=== PATIENT | male | born 1990 | race Caucasian/White ===

== ENCOUNTER 2020-04-28 15:12 | Emergency (ER) | payer MEDICAID, SELFPAY ==
[2020-04-28 15:18] VITALS: BP 134/75; PULSE 70; RESP 18; TEMP 37; O2SAT 99; BMI 28.2
--- NOTE | 2020-04-28 15:33 | CT_ITS ---
PROCEDURE: CT ABDOMEN PELVIS WO CON CLINICAL INDICATION: L flank pain Left flank pain COMPARISON: No exams were available for comparison TECHNIQUE: Axial images obtained with sagittal and coronal reformats. All CT scans at the facility use one or more dose reduction, viz: automated exposure control, ma/kV adjustment per patient size (including targeted exams where dose is matched to indication, i.e. head), or iterative reconstruction technique. FINDINGS: LOWER THORAX: No acute finding ABDOMEN & PELVIS: There is diffuse fatty liver infiltration. The spleen, adrenal glands, and pancreas have an unremarkable appearance. There is a 2 mm stone in the mid polar region of the left kidney. Minimal prominence of the left ureter secondary to a 4 mm stone at the left ureterovesical junction. There is minimal thickening of the urinary bladder. Unremarkable appendix. No intestinal obstruction or free air. There is a small sclerotic focus of the left femoral neck consistent with a bone island IMPRESSION: 4 mm left ureterovesical junction stone with mild obstructive uropathy. Left nephrolithiasis. Mild thickening of the urinary bladder nonspecific and may be due to nondistention. This could be seen with cystitis as well Dictated Andrew De La Cruz MD 04/28/2020 16:19 Andrew Rodriguez MD in [place] 04/28/2020 16:19
--- NOTE | 2020-04-28 15:43 | PC.NURSE ---
rad notified of Ct order, spoke with merry
[2020-04-28 15:45] LABS: Microscopic, Urine URINE MICROSCOPIC (MICROSCOPIC)
[2020-04-28 15:49] LABS: Appearance,Urine CLOUDY (Clear); Bilirubin,Urine Negative (Negative); Blood, Urine 3+ (Negative); Color,Urine AMBER (Yellow); Glucose,Urine (UA) Negative (Negative); Ketones,Urine TRACE (Negative); Leukocyte Esterase,Urine TRACE (Negative); Nitrate,Urine Negative (Negative); Protein,Urine 2+ (Negative)
[2020-04-28 15:52] LABS: Basophils % 0.6 % (0.1-2.0); Eosinophils # 0.1 K/mm3 (0.0-0.4); Eosinophils % 2.5 % (0.1-12.0); Hematocrit 36.6 % (42.0-52.0); Hemoglobin 13.3 g/dL (14.1-18.0); Mean Corpuscular HGB Conc 36.3 g/dL (31.8-35.4); Mean Corpuscular Hemoglobin 29.9 pg (27.0-31.2); Mean Corpuscular Volume 82.3 fl (80-94); Mean Platelet Volume 7.2 fl (7.4-10.4); Monocytes # 0.3 K/mm3 (0.1-1.0); Monocytes % 6.7 % (1.7-9.3); Neutrophils # 2.8 K/mm3 (1.8-7.8); Neutrophils % 66.3 % (37.0-80.0); Platelet Count 239 K/mm3 (142-424); Red Blood Count 4.44 M/mm3 (4.60-6.20); Red Cell Distribution Width 13.7 % (11.5-17.5); White Blood Count 4.2 K/mm3 (4.8-10.8)
[2020-04-28 15:56] LABS: Chloride 103 mmol/L (98-107); Potassium 3.8 mmoL/L (3.5-5.1); Sodium 138 mmol/L (136-145)
[2020-04-28 15:59] LABS: Alanine Aminotransferase 65 U/L (12-78); Albumin Level 4.3 g/dl (3.5-5.0); Albumin/Globulin Ratio 1.4 (1.1-1.8); Alkaline Phosphatase 63 U/L (38-126); Anion Gap 11.8 mEq/L (5-15); Aspartate Amino Transferase 60 U/L (17-59); Blood Urea Nitrogen 14 mg/dl (9-20); Calcium 10.2 mg/dl (8.4-10.2); Carbon Dioxide 27 mmol/L (22.0-30.0); Creatinine Clearance Estimated 163 mL/min (50-200); Estimated Glomerular Filt Rate 100 ml/min (>60); GFR (African American) 122 ML/MIN (>60); Globulin 3.1 g/dL (1.3-3.2); Glucose 122 mg/dl (74-100); Total Protein,Serum 7.4 g/dl (6.3-8.2)
[2020-04-28 16:16] LABS: Bacteria,Urine Trace /lpf; RBC,Urine 20-50 #/hpf (0-3); Squamous Epithelial Cell,Urine Occasional #/hpf (0-5); WBC,Urine Occasional #/hpf (0-3)
--- NOTE | 2020-04-28 16:16 | PC.NURSE ---
Pt returned from rad.
--- NOTE | 2020-04-28 17:05 | HMH.EDGENADL ---
ED Disposition Clinical Impression: Kidney stones, calcium oxalate, Flank pain Disposition: Home, Self-Care Condition on Discharge: Good Instructions: DI for Acute Pain -- Adult Additional Instructions: Follow-up with Dr. Silva Referrals: PCP,Lani [Primary Care Provider] - Gabriele Silva MD [Staff Physician] - - Critical Care Critical Care Time: No Attestation: On 04/28/20, the high probability of a clinically significant, sudden or life threatening deterioration of the following system(s) required my full and direct attention, intervention and personal management. The time I documented below is in addition to time spent performing reported procedures but includes the following listed in this critical care notation. Medical Decision Making - Medical Records Medical records reviewed: Yes: I reviewed the patient's medical records. - Tae Inquiry Pt receiving controlled substance: No Vital Signs: 04/28/20 15:18 Temperature 98.6 F Temperature Source Oral Pulse Rate [Right Radial] 70 Respiratory Rate 18 Blood Pressure [Right Arm] 134/75 Blood Pressure Mean [Right Arm] 94 Blood Pressure Source [Right Arm] Automatic Cuff Blood Pressure Position [Right Arm] Sitting 02 Sat by Pulse Oximetry 99 Oxygen Delivery Method Room Air - Lab Data Lab results reviewed: Yes: I reviewed the patient's lab results. Lab Results 04/28/20 15:20: Urine Color Elvi, Urine Appearance Cloudy, Urine pH 7.0, Ur Specific [place] 1.020, Urine Protein 2+, Urine Glucose (UA) Negative, Urine Ketones Trace, Urine Blood 3+, Urine Nitrate Negative, Urine Bilirubin Negative, Urine Urobilinogen 1.0, Ur Leukocyte Esterase Trace, Urine RBC 20-50, Urine WBC Occasional, Ur Squamous Epith Cells Occasional, Urine Bacteria Trace 04/28/20 15:40: WBC 4.2 L, RBC 4.44 L, Hgb 13.3 L, Hct 36.6 L, MCV 82.3, MCH 29.9, MCHC 36.3 H, RDW 13.7, Plt Count 239, MPV 7.2 L, Neut % (Auto) 66.3, Lymph % (Auto) 24.0, Cass % (Auto) 6.7, Eos % (Auto) 2.5, Baso % (Auto) 0.6, Neut # (Auto) 2.8, Lymph # (Auto) 1.0, Cass # (Auto) 0.3, Eos # (Auto) 0.1, Baso # (Auto) 0.0 04/28/20 15:40: Sodium 138, Potassium 3.8, Chloride 103, Carbon Dioxide 27, Anion Gap 11.8, BUN 14, Creatinine 0.90, Estimated Creat Clear 163, Estimated GFR 100, Est GFR ( Amer) 122, Glucose 122 H, Calcium 10.2, Total Bilirubin 1.0, AST 60 H, ALT 65, Alkaline Phosphatase 63, Total Protein 7.4, Albumin 4.3, Globulin 3.1, Albumin/Globulin Ratio 1.4 Result diagrams: 04/28/20 15:40 04/28/20 15:40 Orders (Tests/Meds): ED MEDICATIONS Discontinued Medications Generic Name Dose Route Start Last Admin Trade Name Tone PRN Reason Stop Dose Admin Sodium Chloride 1,000 mls @ 999 mls/hr 04/28/20 15:45 04/28/20 15:46 Sod Chlor 0.9% 1000ml Bag IV 04/28/20 16:45 999 mls/hr .Q1H1M THIEN Administration Ketorolac Tromethamine 30 mg 04/28/20 15:45 04/28/20 15:46 Toradol 30mg/Ml Vial IV 04/28/20 15:46 30 mg ONCE ONE Administration Ondansetron HCl 4 mg 04/28/20 15:45 04/28/20 15:46 Zofran 4mg/2ml Vial IV 04/28/20 15:46 4 mg ONCE ONE Administration - CT Data CT Scan: Abdomen, Pelvis Time Received: 16:10 Preliminary Findings: Abnormal (Throw male millimeters stone in the JVD.) Medical Decision Narrative: Patient's pain is well controlled. I will have him follow-up with Dr. Silva. General Adult HPI - General Chief complaint: PAIN Stated complaint: Vomiting,,problems in kidney,l side pain Time Seen by Provider: 04/28/20 16:46 Mode of Arrival: Ambulatory Source of Information: Patient Limitations: No Limitations Description of Symptoms (Recalled from ER Triage Doc. by RN): PT C/O L FLANK PAIN AND DIFFICULTY URINATING. PT REPORTS BLOOD NOTED IN URINE. PT REPORTS SYMPTOMS BEGAN THIS AM. - History of Present Illness HPI narrative: A 30-year-old gentleman presents the emergency department complain about left flank pain. He states the pain started this morning
[2020-04-28 17:23] VITALS: BP 133/90; PULSE 87; RESP 17; TEMP 36.7; O2SAT 100
== END 2020-04-28 17:41 | disposition home or self-care (01) ==
PROVIDERS: Emergency Provider Family Medicine
DX: N20.0 Calculus of kidney (principal)
CPT/HCPCS: 74176; 80053; 81001; 85025; 96365; 96375; 99283; J2405

== ENCOUNTER 2020-12-12 19:22 | Emergency (ER) | payer MEDICAID, SELFPAY ==
[2020-12-12 19:30] VITALS: BP 117/76; PULSE 84; RESP 17; TEMP 36.6; O2SAT 99; BMI 37.6
--- NOTE | 2020-12-12 20:04 | HMH.EDEYEP ---
ED Disposition Clinical Impression: Foreign body, eye Qualifiers: Encounter type: initial encounter Laterality: left Qualified Code(s): T15.92XA - Foreign body on external eye, part unspecified, left eye, initial encounter Disposition: Home, Self-Care Condition on Discharge: Good Instructions: How to Get a Foreign Body Out of Your Eye Additional Instructions: use meds as directed and see dr mclaughlin in am if any issues Referrals: PCP,No [Primary Care Provider] - - Critical Care Critical Care Time: No Attestation: On 12/12/20, the high probability of a clinically significant, sudden or life threatening deterioration of the following system(s) required my full and direct attention, intervention and personal management. The time I documented below is in addition to time spent performing reported procedures but includes the following listed in this critical care notation. Medical Decision Making - Medical Records Medical records reviewed: Yes: I reviewed the patient's medical records. - Tae Inquiry Pt receiving controlled substance: No Vital Signs: 12/12/20 19:30 Temperature 97.8 F Temperature Source Oral Pulse Rate [Right Brachial] 84 Respiratory Rate 17 Blood Pressure [Right Arm] 117/76 Blood Pressure Mean [Right Arm] 89 Blood Pressure Source [Right Arm] Automatic Cuff Blood Pressure Position [Right Arm] Sitting 02 Sat by Pulse Oximetry 99 Oxygen Delivery Method Room Air Orders (Tests/Meds): ED MEDICATIONS Discontinued Medications Generic Name Dose Route Start Last Admin Trade Name Freq PRN Reason Stop Dose Admin Gentamicin Sulfate 1 ml 12/12/20 20:01 12/12/20 20:02 Gentamicin 0.3% Opth Irene 5ml OP 12/12/20 20:02 1 ml ONCE ONE Administration Eye Problem HPI - General Chief complaint: Eye Problems Stated complaint: AO 0326 FB in L eye Time Seen by Provider: 12/12/20 20:00 Mode of Arrival: Family Vehicle Source of Information: Patient, Medical Record Limitations: No Limitations Description of Symptoms (Recalled from ER Triage Doc. 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 Onset (ago): hour(s) Onset description: sudden Location: left eye Eye Symptoms: foreign body sensation Place: home Mechanism: other (as in nursing note ) Severity: moderate Treatments Prior to Arrival: none - Related Data Home Medications Medication Instructions Recorded Confirmed docusate sodium 100 mg capsule PO 30 Days #30 11/18/17 trazodone 100 mg tablet PO 30 Days #30 11/18/17 Previous Rx's Medication Instructions Recorded rdfcfucwoixiiau-mimegiofcugfimf-MM 10 ml PO Q4-6H PRN #240 ml 11/18/17 2 mg-30 mg-10 mg/5 mL oral syrup Amoxicillin/Potassium Clav 1 tab PO Q12H 10 Days #20 tab 06/26/19 [Augmentin 875-125 Tablet] Neomycin/Polymyxin B Sulf/Hc 3 drops EAR-LEFT TID 7 Days #1 06/26/19 [Ieoveoyd-Tsopryufs-KK Otic Susp bottle 10mL] Allergies Allergy/AdvReac Type Severity Reaction Status Date / Time No Known Allergies Allergy Unverified 11/18/17 13:37 [facility] History - Hepatitis A Screen Drug use history?: No High risk sexual behaviors?: No History of sexually transmitted infection?: No Currently employed?: No Childcare worker?: No Do you have indoor plumbing?: Yes Do you have electricity?: Yes Attestation statement:: This patient has been screened for Hepatitis A risk factors. I have reviewed the patient's past medical history: Yes Medical History: Denies:: Diabetes Mellitus Type 1, Diabetes Mellitus Type 2 Other Surgeries: Yes: No Previous Surgery - Social History Smoking Status: Never smoker Alcohol Intake: never Occupational Status: other Family Hx:: Cancer ROS Obtained: Yes All systems reviewed & no additional complaints
[2020-12-12 20:09] VITALS: BP 120/74; PULSE 84; RESP 16; TEMP 36.7; O2SAT 98
== END 2020-12-12 20:15 | disposition home or self-care (01) ==
PROVIDERS: Emergency Provider Emergency Medicine
DX: T15.92XA Foreign body on external eye, part unspecified, left eye, initial encounter (principal); W45.8XXA Other foreign body or object entering through skin, initial encounter; Y92.89 Other specified places as the place of occurrence of the external cause
CPT/HCPCS: 65205; 99282

== ENCOUNTER → 2021-06-16 09:54 | Outpatient (CLI) | payer MEDICAID, SELFPAY | PROVIDERS: PCP Emergency Medicine; Visit Provider Nurse Practitioner | DX: Z20.822 Contact with and (suspected) exposure to COVID-19 (principal) | CPT/HCPCS: C9803; U0003; U0005 ==

== ENCOUNTER 2021-06-26 16:55 | Emergency (ER) | payer MEDICAID, SELFPAY ==
[2021-06-26 17:10] VITALS: BP 119/79; PULSE 93; RESP 20; TEMP 37.2; O2SAT 96; BMI 31.7
[2021-06-26 17:20] LABS: Adenovirus,PCR Not Detected (NotDetected); Coronavirus 229E Not Detected (NotDetected); Coronavirus NL63 Not Detected (NotDetected); Coronavirus OC43 Not Detected (NotDetected); Coronovirus HKU1,PCR Not Detected (NotDetected)
[2021-06-26 17:21] LABS: Bordetella Pertussis Not Detected (NotDetected); Chlamydophila Pneumoniae, PCR Not Detected (NotDetected); Human Metapneumovirus Not Detected (NotDetected); Influenza A, PCR Not Detected (NotDetected); Influenza AH1, 2009 Not Detected (NotDetected); Influenza AH1, PCR Not Detected (NotDetected); Influenza AH3,PCR Not Detected (NotDetected); Influenza B, PCR Not Detected (NotDetected); Mycoplasma Pneumoniae, PCR Not Detected (NotDetected); Parainfluenza 1, PCR Not Detected (NotDetected); Parainfluenza 2, PCR Not Detected (NotDetected); Parainfluenza 3, PCR Not Detected (NotDetected); Parainfluenza 4, PCR Not Detected (NotDetected); Respiratory Syncytial Virus Not Detected (NotDetected); Rhinovirus/Enterovirus Not Detected (NotDetected)
--- NOTE | 2021-06-26 17:56 | HMH.EDUTC ---
[facility] [place] Disposition Clinical Impression: Viral syndrome Acute bronchitis Qualifiers: Bronchitis organism: unspecified organism Qualified Code(s): J20.9 - Acute bronchitis, unspecified Disposition: Home, Self-Care Condition on Discharge: Good Instructions: Acute Bronchitis, DI for Acute Bronchitis, DI for Viral Syndrome, DI for COVID-19 (Suspected or Confirmed ), Preventing the Spread of Coronavirus Discharge Instructions Additional Instructions: Drink plenty of fluids. Take tylenol or ibuprofen for pain or fever. Take the medications as directed. Follow up with your regular doctor. GO TO THE ER FOR ANY WORSENING SYMPTOMS Quarantine until you know the results of your covid-19 test. If it is positive, the health department should call you and give you further instructions about your length of Quarantine and other things. Notify your school or workplace of your results and follow their instructions regarding return to work/school. Prescriptions: Brompheniramine/Pseudoephed/Dm [Bromfed Dm Cough Syrup] 5 ml PO Q6HP PRN #240 ml PRN Reason: Cough Transmission Status: Received by [facility] predniSONE [Prednisone 20mg Tab] 20 mg PO BID 4 Days #8 tab Transmission Status: Received by [facility] Azithromycin [Z-Michael 250mg Tab*] 250 mg PO UD DOSE PK #6 tab Transmission Status: Received by [facility] Ondansetron [Zofran 4mg ODT] 4 mg PO DAILYP PRN #12 tab PRN Reason: Nausea Transmission Status: Received by [facility] Referrals: Phill Lemon MD [Primary Care Provider] - Time of Disposition: 18:16 Medical Decision Making - Medical Records Medical records reviewed: No: I reviewed the patient's medical records. - Tae Inquiry Pt receiving controlled substance: No Vital Signs: 06/26/21 17:10 06/26/21 18:09 Temperature 98.9 F 98.9 F Temperature Source Oral Pulse Rate 93 H Pulse Rate [Right Brachial] 93 H Respiratory Rate 20 20 Blood Pressure 119/79 Blood Pressure [Right Arm] 119/79 Blood Pressure Mean [Right Arm] 92 Blood Pressure Source [Right Arm] Automatic Cuff Blood Pressure Position [Right Arm] Sitting 02 Sat by Pulse Oximetry 96 Oxygen Delivery Method Room Air - Lab Data Lab results reviewed: Yes: I reviewed the patient's lab results. Lab Results 06/26/21 17:12: Chlamy pneumoniae PCR Not detected, Adenovirus (PCR) Not detected, B. pertussis DNA (PCR) Not detected, Coronavirus OC43 (PCR) Not detected, Coronavirus HKU1 (PCR) Not detected, Coronavirus 229E (PCR) Not detected, SARS-CoV-2 (PCR) Detected A, Coronavirus NL63 (PCR) Not detected, Human Metapneumovir PCR Not detected, Influenza A (H1) PCR Not detected, Influ A (H1N1/09) PCR Not detected, Influenza A (H3) PCR Not detected, Influenza Type A (PCR) Not detected, Influenza Type B (PCR) Not detected, M. pneumoniae (PCR) Not detected, Parainfluenza 1 (PCR) Not detected, Parainfluenza 2 (PCR) Not detected, Parainfluenza 3 (PCR) Not detected, Parainfluenza 4 (PCR) Not detected, RSV (PCR) Not detected, Entero/Rhino (PCR) Not detected 06/26/21 17:59: Strep Scn Rapid Clinic Negative Orders (Tests/Meds): ORDERS Category Date Time Status Strep Screen Confirmation Stat Micro 06/26/21 17:59 Received [facility] [place] HPI - General Stated complaint: Sore throat,Cough,SOB,LEDBETTER Time Seen by Provider: 06/26/21 17:56 Mode of Arrival: Ambulatory Source of Information: Patient Limitations: No Limitations Description of Symptoms (Recalled from Triage Doc. by RN): PATIENT C/O BODY ACHES, BACK PAIN, SOA, VOMITING, AND COUGH. RECENTLY TESTED NEGATIVE FOR COVID HEENT Symptoms (Recalled from RN notes): No Resp Symptoms (Recalled from RN notes): Yes Skin Symptoms (Recalled from RN notes): No MS Symptoms (Recalled from RN notes): Yes Functional Status (Recalled from RN notes): WNL - History of Present Illness Provider Complaint: He states that for the past 5 days or so, he has felt bad, had a cough, c
[2021-06-26 18:08] LABS: UTC Strep Screen (Rapid) Negative (Negative)
[2021-06-26 18:09] VITALS: BP 119/79; PULSE 93; RESP 20; TEMP 37.2; O2SAT 96
[2021-06-26 19:17] LABS: Coronavirus 19, PCR Detected (NotDetected)
== END 2021-06-26 18:24 | disposition home or self-care (01) ==
PROVIDERS: Emergency Provider Nurse Practitioner Family; PCP Emergency Medicine
DX: J20.9 Acute bronchitis, unspecified (principal); B34.9 Viral infection, unspecified
CPT/HCPCS: 87581; 87632; 87798; 87880; 99203; C9803; G0463; U0003; U0005

== ENCOUNTER 2021-11-24 15:59 | Emergency (ER) | payer MEDICAID, SELFPAY ==
[2021-11-24 15:59] VITALS: BP 135/60; PULSE 70; RESP 16; TEMP 37.2; O2SAT 98; BMI 23.6
--- NOTE | 2021-11-24 17:55 | HMH.EDUTC ---
[facility] – [place] Disposition Clinical Impression: Pharyngitis Qualifiers: Pharyngitis/tonsillitis etiology: unspecified etiology Qualified Code(s): J02.9 - Acute pharyngitis, unspecified Disposition: Home, Self-Care Condition on Discharge: Good Instructions: Strep Throat, DI for Strep Throat Additional Instructions: Drink plenty of fluids. Take tylenol or ibuprofen for pain or fever. Take the medications as directed. Follow up with your regular doctor. GO TO THE ER FOR ANY WORSENING SYMPTOMS Prescriptions: Brompheniramine/Pseudoephed/Dm [Bromfed Dm Cough Syrup] 5 ml PO Q6HP PRN #240 ml PRN Reason: Cough Transmission Status: Received by [facility] Azithromycin [Z-Michael 250mg Tab*] 250 mg PO UD DOSE PK #6 tab Transmission Status: Received by [facility] Referrals: Phill Lemon MD [Primary Care Provider] - Time of Disposition: 18:05 Medical Decision Making - Medical Records Medical records reviewed: No: I reviewed the patient's medical records. - Tae Inquiry Pt receiving controlled substance: No Vital Signs: 11/24/21 15:59 11/24/21 18:12 Temperature 98.9 F 98 F Temperature Source Oral Oral Pulse Rate 71 Pulse Rate [Right] 70 Respiratory Rate 16 16 Blood Pressure 135/60 Blood Pressure [Right Arm] 135/60 Blood Pressure Mean [Right Arm] 85 Blood Pressure Source Automatic Cuff Blood Pressure Source [Right Arm] Automatic Cuff Blood Pressure Position Sitting Blood Pressure Position [Right Arm] Sitting 02 Sat by Pulse Oximetry 98 Oxygen Delivery Method Room Air Room Air - Lab Data Lab results reviewed: Yes: I reviewed the patient's lab results. Lab Results 11/24/21 17:47: Strep Scn Rapid Clinic Negative Orders (Tests/Meds): ORDERS Category Date Time Status Strep Screen Confirmation Stat Micro 11/24/21 17:47 Received [facility] [place] HPI - General Stated complaint: vomiting Time Seen by Provider: 11/24/21 17:55 Mode of Arrival: Ambulatory Source of Information: Patient Limitations: No Limitations Description of Symptoms (Recalled from Triage Doc. by RN): pt advises he has not been feeling good for the past couple of days. Says I just don't feel good HEENT Symptoms (Recalled from RN notes): No Resp Symptoms (Recalled from RN notes): No Skin Symptoms (Recalled from RN notes): No MS Symptoms (Recalled from RN notes): No Functional Status (Recalled from RN notes): na - History of Present Illness Provider Complaint: He states that he has had body ache, sinus congestion, sore throat and he has felt bad for the past 2 days. - Related Data Home Medications Medication Instructions Recorded Confirmed docusate sodium 100 mg capsule PO 30 Days #30 11/18/17 trazodone 100 mg tablet PO 30 Days #30 11/18/17 Previous Rx's Medication Instructions Recorded hvbjvrdyyxftasg-pwmqxsvbcuwkctp-QJ 10 ml PO Q4-6H PRN #240 ml 11/18/17 2 mg-30 mg-10 mg/5 mL oral syrup Amoxicillin/Potassium Clav 1 tab PO Q12H 10 Days #20 tab 06/26/19 [Augmentin 875-125 Tablet] Neomycin/Polymyxin B Sulf/Hc 3 drops EAR-LEFT TID 7 Days #1 06/26/19 [Texjmzzs-Uujdiowsf-BW Otic Susp bottle 10mL] Azithromycin [Z-Michael 250mg Tab*] 250 mg PO UD DOSE PK #6 tab 06/26/21 Brompheniramine/Pseudoephed/Dm 5 ml PO Q6HP PRN #240 ml 06/26/21 [Bromfed Dm Cough Syrup] Ondansetron [Zofran 4mg ODT] 4 mg PO DAILYP PRN #12 tab 06/26/21 predniSONE [Prednisone 20mg 20 mg PO BID 4 Days #8 tab 06/26/21 Tab] Azithromycin [Z-Michael 250mg Tab*] 250 mg PO UD DOSE PK #6 tab 11/24/21 Brompheniramine/Pseudoephed/Dm 5 ml PO Q6HP PRN #240 ml 11/24/21 [Bromfed Dm Cough Syrup] Allergies Allergy/AdvReac Type Severity Reaction Status Date / Time No Known Allergies Allergy Verified 06/26/21 17:29 - Worker's Comp Is this a Worker's Comp case?: No [facility] History - Hepatitis A Screen Drug use history?: No High risk sexual behaviors?: No History of sexually transmitted infection?: No Currentl
[2021-11-24 17:58] LABS: UTC Strep Screen (Rapid) Negative (Negative)
[2021-11-24 18:12] VITALS: BP 135/60; PULSE 71; RESP 16; TEMP 36.6; O2SAT 98
== END 2021-11-24 18:14 | disposition home or self-care (01) ==
PROVIDERS: Emergency Provider Nurse Practitioner Family; PCP Emergency Medicine
DX: J02.9 Acute pharyngitis, unspecified (principal)
CPT/HCPCS: 87880; 99212; G0463

== ENCOUNTER 2022-05-05 08:13 | Emergency (ER) | payer MEDICAID, SELFPAY ==
[2022-05-05 08:32] VITALS: BP 112/68; PULSE 64; RESP 16; TEMP 36.9; O2SAT 99; BMI 31.0
--- NOTE | 2022-05-05 08:40 | HMH.EDUTC ---
[facility] [place] Clinical Impression: Folliculitis Disposition: Home, Self-Care Condition on Discharge: Good Instructions: Folliculitis, DI for Folliculitis Additional Instructions: Keep the affected area clean and dry. Follow up with your regular doctor. Take the antibiotics as directed and apply the topical antibiotics as directed. Apply warm wet compresses to the affected area three or four times per day. GO TO THE ER FOR ANY WORSENING SYMPTOMS Prescriptions: Mupirocin [Bactroban 2% Ointment 22gm tube] 1 applicatio TP TID 7 Days #1 gm Transmission Status: Received by [facility] cephALEXin [cephALEXin 500mg capsule] 500 mg PO Q6H 10 Days #40 cap Transmission Status: Received by [facility] Referrals: Phill Lemon MD [Primary Care Provider] - Time of Disposition: 08:59 Medical Decision Making - Medical Records Medical records reviewed: No: I reviewed the patient's medical records. - Tae Inquiry Pt receiving controlled substance: No Vital Signs: 05/05/22 08:32 05/05/22 08:49 05/05/22 09:03 Temperature 98.5 F 98.5 F 98.5 F Temperature Source Oral Oral Pulse Rate 64 Pulse Rate [Right Radial] 64 64 Respiratory Rate 16 16 16 Blood Pressure 112/68 Blood Pressure [Right Arm] 112/68 112/68 Blood Pressure Mean [Right Arm] 82 82 Blood Pressure Source [Right Arm] Automatic Cuff Blood Pressure Position [Right Arm] Sitting 02 Sat by Pulse Oximetry 99 99 Oxygen Delivery Method Room Air [facility] [place]PI - General Stated complaint: sore near groin Time Seen by Provider: 05/05/22 08:40 Mode of Arrival: Ambulatory Source of Information: Patient Limitations: No Limitations Description of Symptoms (Recalled from Triage Doc. by RN): Pt reports red, sore area in L groin area. Pt reports noticed area yesterday. Pt states no drainage from area, denies fevers. - History of Present Illness Provider Complaint: He states that for the past 2 days he has had a red tender area at the top of his left leg near his groin. He denies any injury. He denies any open wound or drainage. - Related Data Home Medications Medication Instructions Recorded Confirmed docusate sodium 100 mg capsule PO 30 Days #30 11/18/17 trazodone 100 mg tablet PO 30 Days #30 11/18/17 Previous Rx's Medication Instructions Recorded osemstmooznybvo-qmqavsabtnxmmkm-OS 10 ml PO Q4-6H PRN #240 ml 11/18/17 2 mg-30 mg-10 mg/5 mL oral syrup Amoxicillin/Potassium Clav 1 tab PO Q12H 10 Days #20 tab 06/26/19 [Augmentin 875-125 Tablet] Neomycin/Polymyxin B Sulf/Hc 3 drops EAR-LEFT TID 7 Days #1 06/26/19 [Cjxvpmbh-Szpznkqbd-DA Otic Susp bottle 10mL] Azithromycin [Z-Michael 250mg Tab*] 250 mg PO UD DOSE PK #6 tab 06/26/21 Brompheniramine/Pseudoephed/Dm 5 ml PO Q6HP PRN #240 ml 06/26/21 [Bromfed Dm Cough Syrup] Ondansetron [Zofran 4mg ODT] 4 mg PO DAILYP PRN #12 tab 06/26/21 predniSONE [Prednisone 20mg 20 mg PO BID 4 Days #8 tab 06/26/21 Tab] Azithromycin [Z-Michael 250mg Tab*] 250 mg PO UD DOSE PK #6 tab 11/24/21 Brompheniramine/Pseudoephed/Dm 5 ml PO Q6HP PRN #240 ml 11/24/21 [Bromfed Dm Cough Syrup] Mupirocin [Bactroban 2% Ointment 1 applicatio TP TID 7 Days #1 gm 05/05/22 22gm tube] cephALEXin [cephALEXin 500mg 500 mg PO Q6H 10 Days #40 cap 05/05/22 capsule] Allergies Allergy/AdvReac Type Severity Reaction Status Date / Time No Known Allergies Allergy Verified 05/05/22 08:52 [facility] History - Hepatitis A Screen Attestation statement:: This patient has been screened for Hepatitis A risk factors. I have reviewed the patient's past medical history: Yes Medical History: Denies:: Diabetes Mellitus Type 1, Diabetes Mellitus Type 2 Other Surgeries: Yes: No Previous Surgery - Social History Smoking Status: Never smoker Alcohol Intake: never Occupational Status: other Family Hx:: Cancer ROS Obtained: Yes All systems reviewed & no additional complaints -
[2022-05-05 08:49] VITALS: BP 112/68; PULSE 64; RESP 16; TEMP 36.9; O2SAT 99; BMI 31.1
[2022-05-05 09:03] VITALS: BP 112/68; PULSE 64; RESP 16; TEMP 36.9
== END 2022-05-05 09:05 | disposition home or self-care (01) ==
LOC: ER 08:31 → UTC 08:32
PROVIDERS: Emergency Provider Nurse Practitioner Family; PCP Emergency Medicine
DX: L73.9 Follicular disorder, unspecified
CPT/HCPCS: 99212; G0463

== ENCOUNTER 2022-07-05 12:54 | Emergency (ER) | payer MEDICAID, SELFPAY ==
[2022-07-05 12:59] VITALS: BP 126/86; PULSE 89; RESP 17; O2SAT 98; BMI 31.0
--- NOTE | 2022-07-05 14:07 | EXP.UTC ---
Discharge Plan Disposition Patient Disposition: Home, Self-Care Condition: Good Prescriptions Prescriptions: New sulfamethoxazole-trimethoprim [Bactrim DS] 800-160 mg Tablet 1 tab PO BID Qty: 20 0RF cephalexin 500 mg capsule 500 mg PO QID Qty: 40 0RF mupirocin 2 % ointment 1 applic topical TID 7 Days Qty: 15 0RF No Action trazodone 100 mg tablet PO 30 Days Qty: 30 Label Comments: docusate sodium 100 mg capsule PO 30 Days Qty: 30 Label Comments: vdsxzthtfhhzwoe-lbnomvmbp-ZT [Bromfed DM] 2-30-10 mg/5 mL syrup 10 ml PO Q4-6H PRN (Reason: sinus symptoms) Qty: 240 0RF xqdyhvly-fdfztgxaq-CD 10 ML bottle 3 drops EAR-LEFT TID 7 Days Qty: 1 0RF amoxicillin-pot clavulanate 1 EACH tablet 1 tab PO Q12H 10 Days Qty: 20 0RF azithromycin 250 MG tablet 250 mg PO UD DOSE PK Qty: 6 0RF Rx Instructions: Take two (2) tablets today, then one (1) tablet days #2 thru #5 micufxwbpyqmzyi-aaffflfah-UM 118 ML syrup 5 ml PO Q6HP PRN (Reason: Cough) Qty: 240 0RF ondansetron 4 MG tablet,disintegrating 4 mg PO DAILYP PRN (Reason: Nausea) Qty: 12 0RF prednisone 20 MG tablet 20 mg PO BID 4 Days Qty: 8 0RF cephalexin 500 MG capsule 500 mg PO Q6H 10 Days Qty: 40 0RF mupirocin 22 GM ointment 1 applicatio TP TID 7 Days Qty: 1 0RF azithromycin 250 MG tablet 250 mg PO UD DOSE PK Qty: 6 0RF Rx Instructions: Take two (2) tablets today, then one (1) tablet days #2 thru #5 onsssnfvksjrbgq-qlipizfbt-LB 118 ML syrup 5 ml PO Q6HP PRN (Reason: Cough) Qty: 240 0RF Referrals Follow up/Referrals: Phill Lemon MD [Primary Care Provider] - See instructions Activity Restrictions/Add. Instructions Additional Instructions/Restrictions: Drink plenty of fluids. Apply warm wet compresses to the affected sites three or four times per day for 15 minutes as tolerated. Take tylenol or ibuprofen for pain or fever. Take the medications as directed. Follow up with your regular doctor. GO TO THE ER FOR ANY WORSENING SYMPTOMS Clinical Impressions Clinical Impression: Cellulitis and abscess of face Instructions Patient Instructions: DI for Cellulitis -- Adult, Boil Discharge ED Provider: Ace Carter [facility] [place] HPI General Stated complaint: sore on neck Mode of Arrival: Ambulatory Limitations: No Limitations Time Seen by Provider: 07/05/22 14:07 Description of Symptoms (Recalled from Triage Doc. by RN): Boil notied to right side of neck for 3-4 days, denies fever, chills, or s/s of infection. History of Present Illness Provider Complaint: He has an infected area on the right side of his neck. this place has been bothering him for the past 4 days. He denies any fever or chills. Related Data Home Medications Medication Instructions Recorded Confirmed docusate sodium 100 mg capsule PO 30 days ##30 11/18/17 trazodone 100 mg tablet PO 30 days ##30 11/18/17 Previous Rx's Medication Instructions Recorded bifzatkjwstyvub-pxurehjbbrairex-GO 10 ml PO Q4-6H PRN sinus symptoms 11/18/17 2 mg-30 mg-10 mg/5 mL oral syrup #240 mL (Bromfed DM) amoxicillin 875 mg-potassium 1 tab PO Q12H 10 days #20 tabs 06/26/19 clavulanate 125 mg tablet izntmtqi-iplhmbpkf-jcjvritab 3.5 3 drops EAR-LEFT TID 7 days ##1 06/26/19 mg-10,000 unit/mL-1 % ear drops,susp azithromycin 250 mg tablet 250 mg PO UD DOSE PK #6 tabs 06/26/21 vbdebxrwzgtqabo-pcumioananaljlr-QM 5 ml PO Q6HP PRN Cough #240 mL 06/26/21 2 mg-30 mg-10 mg/5 mL oral syrup ondansetron 4 mg disintegrating 4 mg PO DAILYP PRN Nausea #12 tabs 06/26/21 tablet prednisone 20 mg tablet 20 mg PO BID 4 days #8 tabs 06/26/21 azithromycin 250 mg tablet 250 mg PO UD DOSE PK #6 tabs 11/24/21 wptftfctvtafylf-kbvgokmotbwnnvl-ZV 5 ml PO Q6HP PRN Cough #240 mL 11/24/21 2 mg-30 mg-10 mg/5 mL oral syrup cephalexin 500 mg capsule 500 mg PO Q6H 10 days #40 caps 05/05/22 mupirocin 2 % topical
[2022-07-05 14:17] VITALS: BP 126/86; PULSE 89; RESP 17; TEMP 36.8; O2SAT 98; BMI 31.9
[2022-07-05 14:38] VITALS: BP 126/86; PULSE 89; RESP 17; TEMP 36.8
== END 2022-07-05 14:45 | disposition home or self-care (01) ==
LOC: ER 13:00 → UTC 13:00
PROVIDERS: Emergency Provider Nurse Practitioner Family; PCP Emergency Medicine
DX: L02.11 Cutaneous abscess of neck (principal)
CPT/HCPCS: 96372; 99212; G0463; J0696

== ENCOUNTER 2023-02-14 17:28 | Emergency (ER) | payer MEDICAID, SELFPAY ==
[2023-02-14 17:52] VITALS: BP 131/79; PULSE 80; RESP 16; TEMP 37; O2SAT 79; BMI 28.6
[2023-02-14 17:58] LABS: UTC Strep Screen (Rapid) Positive (Negative)
--- NOTE | 2023-02-14 17:58 | EXP.UTC ---
Discharge Plan Disposition Patient Disposition: Home, Self-Care Condition: Good Prescriptions Prescriptions: New amoxicillin [amoxicillin] 875 mg tablet 875 mg PO Q12H Qty: 20 0RF benzonatate [benzonatate] 100 mg capsule 100 mg PO TIDP PRN (Reason: Cough) Qty: 30 0RF prednisone 10 mg tablet 10 mg PO BID 3 Days Qty: 6 0RF Referrals Follow up/Referrals: Provider,Referral, MD [Primary Care Provider] - See instructions Activity Restrictions/Add. Instructions Additional Instructions/Restrictions: Drink plenty of fluids. Take tylenol or ibuprofen for pain or fever. Take the medications as directed. Follow up with your regular doctor. GO TO THE ER FOR ANY WORSENING SYMPTOMS Throw your tooth brush away and get a new one. Clinical Impressions Clinical Impression: Strep throat Instructions Patient Instructions: Strep Throat, DI for Strep Throat [place] ED [place] [facility] [place] General Stated complaint: sore throat Mode of Arrival: Ambulatory Source of Information: Patient Limitations: No Limitations Time Seen by Provider: 02/14/23 17:58 Description of Symptoms (Recalled from Triage Doc. by RN): sore throat HEENT Symptoms (Recalled from RN notes): Yes Resp Symptoms (Recalled from RN notes): No Skin Symptoms (Recalled from RN notes): No MS Symptoms (Recalled from RN notes): No Functional Status (Recalled from RN notes): na History of Present Illness Provider Complaint: He c/o sore throat for the past 4 days. Related Data Previous Rx's Medication Instructions Recorded amoxicillin 875 mg tablet 875 mg PO Q12H #20 tabs 02/14/23 benzonatate 100 mg capsule 100 mg PO TIDP PRN Cough #30 caps 02/14/23 prednisone 10 mg tablet 10 mg PO BID 3 days #6 tabs 02/14/23 Allergies Allergy/AdvReac Type Severity Reaction Status Date / Time No Known Allergies Allergy Verified 02/14/23 17:51 Worker's Comp Is this a Worker's Comp case?: No [facility] Disclaimer: The information contained in this section may have been updated after the patient was seen, as this information can be updated by other users. Medical History Kidney stone Migraine Surgical History No significant past surgical history Social History Smoking Status: Never smoker alcohol intake: never current occupational status: other Travel in the last 8 weeks: None ROS Obtained: Yes All systems reviewed & no additional complaints except as documented Constitutional Constitutional: Reports chills and Reports fever(s) Eyes Eyes: Denies eye discharge ENT Ears, Nose, Mouth, and Throat: Reports as per HPI Cardiovascular Cardiovascular: Denies chest pain Respiratory Respiratory: Denies chest congestion and Reports cough Gastrointestinal Gastrointestingal: Reports nausea; Denies abdominal pain, constipation, cramping, diarrhea or vomiting Musculoskeletal Musculoskeletal: Denies arthralgias Integumentary/Breasts Skin/Breast: Denies rash Neurologic Neurologic: Denies paresthesias Physical Exam General General appearance: alert and in no apparent distress Head Head exam: atraumatic, normocephalic and normal inspection Eye Eye exam: Present normal appearance, PERRL and EOMI ENT ENT exam: Present mucous membranes moist and normal external ear exam Expanded ENT Exam TM/Canal exam: Bilateral TM: erythema and bulging Nose exam: Absent sinus tenderness Mouth exam: Present normal external inspection; Absent drooling Teeth exam: Present normal inspection Throat exam: Present tonsillar erythema, tonsillomegaly and tonsillar exudate Neck Neck exam: Present normal inspection, full ROM and trachea midline; Absent tenderness, meningismus or lymphadenopathy Chest Chest inspection: Present normal inspection and symmetric chest wall rise; Absent tenderness Res
[2023-02-14 18:33] VITALS: BP 131/79; PULSE 77; RESP 18; TEMP 36.8; O2SAT 99
== END 2023-02-14 18:35 | disposition home or self-care (01) ==
LOC: UTC 17:32 → ER 17:48 → UTC 17:49
PROVIDERS: Emergency Provider Nurse Practitioner Family
DX: J02.0 Streptococcal pharyngitis (principal)
CPT/HCPCS: 87880; 99212; 99214; G0463

== ENCOUNTER 2023-06-04 18:57 | Emergency (ER) | payer MEDICAID, SELFPAY ==
[2023-06-04 18:59] VITALS: BP 140/74; PULSE 93; RESP 20; TEMP 36.8; O2SAT 98; BMI 32.5
--- NOTE | 2023-06-04 19:18 | CT_ITS ---
PROCEDURE INFORMATION: Exam: CT Head Without Contrast Exam date and time: 06/04/2023 7:27 PM Age: 33 years old Clinical indication: Pain; Headache; Additional info: New headache, R side TECHNIQUE: Imaging protocol: Computed tomography of the head without contrast. Total images: 283 Radiation optimization: All CT scans at this facility use at least one of these dose optimization techniques: automated exposure control; mA and/or kV adjustment per patient size (includes targeted exams where dose is matched to clinical indication); or iterative reconstruction. REPORTING DATA: Count of CT and Cardiac NM exams in prior 12 months: This patient has received 0 known CTs and 0 known cardiac nuclear medicine studies in the 12 months prior to the current study. COMPARISON: No relevant prior studies available. FINDINGS: Brain: Normal. No hemorrhage. Unremarkable white matter. No mass effect. The cowart-white interface is maintained. Cerebral ventricles: No ventriculomegaly. Paranasal sinuses: Moderate mucosal thickening bilateral maxillary sinuses and bilateral ethmoid air cells. No air-fluid levels. Mastoid air cells: Visualized mastoid air cells are well aerated. Bones/joints: Unremarkable. No acute fracture. Soft tissues: Unremarkable. IMPRESSION: 1. No acute intracranial process. 2. Moderate mucosal thickening paranasal sinuses. No air-fluid levels.
--- NOTE | 2023-06-04 19:18 | XR_ITS ---
PROCEDURE INFORMATION: Exam: XR Chest Exam date and time: 06/04/2023 7:22 PM Age: 33 years old Clinical indication: Cough; Additional info: Cough, sputum production TECHNIQUE: Imaging protocol: Radiologic exam of the chest. Views: 2 views. Total images: 2 COMPARISON: CT ABDOMEN PELVIS WO CON 04/28/2020 4:07 PM FINDINGS: Lungs: Unremarkable. No consolidation. No pulmonary vascular congestion or edema. Pleural spaces: Unremarkable. No pleural effusion. No pneumothorax. Heart/Mediastinum: Unremarkable. No cardiomegaly. No mediastinal widening or hilar enlargement. Bones/joints: Unremarkable. IMPRESSION: No radiographically acute cardiopulmonary process.
--- NOTE | 2023-06-04 19:24 | HMH.EDGENADL ---
Discharge Plan Disposition Patient Disposition: Home, Self-Care Condition: Good Prescriptions Prescriptions: No Action amoxicillin [amoxicillin] 875 mg tablet 875 mg PO Q12H Qty: 20 0RF benzonatate [benzonatate] 100 mg capsule 100 mg PO TIDP PRN (Reason: Cough) Qty: 30 0RF prednisone 10 mg tablet 10 mg PO BID 3 Days Qty: 6 0RF Referrals Follow up/Referrals: Provider,Referral, MD [Primary Care Provider] - See instructions Activity Restrictions/Add. Instructions Additional Instructions/Restrictions: You were evaluated in the emergency department today. Please take Tylenol and ibuprofen at home as needed for symptoms. Follow-up with your primary care provider over the next 3 days. Return to the emergency department for new or worsening symptoms. Clinical Impressions Clinical Impression: Upper respiratory infection, viral Instructions Patient Instructions: DI for Viral Syndrome Discharge ED Provider: Elvi Larsen General Adult HPI General Chief complaint: Upper Respiratory Infection Stated complaint: cough,pain at back of head Time Seen by Provider: 06/04/23 19:14 Mode of Arrival: Ambulatory Source of Information: Patient Limitations: No Limitations Description of Symptoms (Recalled from ER Triage Doc. by RN): Pt presents with complaints of chest congestion, wheezing, headache, sore throat. Pt states he is coughing up phlegm that looks like Orr . Denies any N/V/D or fever. Pt is afebrile at this time. History of Present Illness HPI narrative: This patient is a 33-year-old male who denies significant past medical history presenting to the emergency department for evaluation with concern for cough, congestion, wheezing, headache, and sore throat that has been going on for a few days. He denies any belly pain, nausea, vomiting, changes in bowel movements, or other concerns. He states that his biggest concern is that he is having a headache today. He states that every time he coughs, the headache feels worse. He states that he feels like there is something in his brain on the right side. The headache is currently not present, but it does come back whenever he tries to sleep and coughs. He did not take any medications prior to arrival. Related Data Previous Rx's Medication Instructions Recorded amoxicillin 875 mg tablet 875 mg PO Q12H #20 tabs 02/14/23 benzonatate 100 mg capsule 100 mg PO TIDP PRN Cough #30 caps 02/14/23 prednisone 10 mg tablet 10 mg PO BID 3 days #6 tabs 02/14/23 Allergies Allergy/AdvReac Type Severity Reaction Status Date / Time No Known Allergies Allergy Verified 02/14/23 17:51 [facility] Disclaimer: The information contained in this section may have been updated after the patient was seen, as this information can be updated by other users. Medical History Kidney stone Migraine Surgical History No significant past surgical history Social History Smoking Status: Never smoker alcohol intake: never current occupational status: other Travel in the last 8 weeks: None ROS Obtained: Yes All systems reviewed & no additional complaints except as documented Physical Exam General General appearance: alert and in no apparent distress Head Head exam: atraumatic and normocephalic Eye Eye exam: Present normal appearance, PERRL and EOMI ENT ENT exam: Present normal exam, normal oropharynx, mucous membranes moist and normal external ear exam Neck Neck exam: Present normal inspection, full ROM and trachea midline; Absent tenderness Chest Chest inspection: Present normal inspection and symmetric chest wall rise; Absent tenderness Respiratory Respiratory exam: Present normal lung sounds bilaterally; Absent respiratory distress, wheezes, stridor or accessory muscle use Cardiovascular Cardiovascular exam
[2023-06-04 20:08] LABS: Coronavirus 19, PCR Not Detected (NotDetected); Influenza A, PCR Not Detected (NotDetected); Influenza B, PCR Not Detected (NotDetected)
[2023-06-04 20:58] VITALS: BP 160/78; PULSE 79; RESP 20; TEMP 36.5; O2SAT 100
== END 2023-06-04 21:00 | disposition home or self-care (01) ==
PROVIDERS: Emergency Provider Emergency Medicine
DX: J06.9 Acute upper respiratory infection, unspecified (principal); R51.9 Headache, unspecified; J02.9 Acute pharyngitis, unspecified
CPT/HCPCS: 70450; 71046; 87636; 99284

== ENCOUNTER 2024-01-21 20:26 | Emergency (ER) | payer MEDICAID, SELFPAY ==
[2024-01-21 21:13] VITALS: BP 0/0; PULSE 0; RESP 0; TEMP -17.7; TEMP 0; O2SAT 0
== END 2024-01-21 21:15 | disposition left against medical advice (07) ==
LOC: ER 20:46
PROVIDERS: Emergency Provider Emergency Medicine
DX: Z53.21 Procedure and treatment not carried out due to patient leaving prior to being seen by health care provider (principal)
CPT/HCPCS: 99211

== ENCOUNTER 2024-02-04 16:59 | Emergency (ER) | payer MEDICAID, SELFPAY ==
[2024-02-04 17:00] VITALS: BP 112/79; PULSE 95; RESP 16; TEMP 36.6; O2SAT 96; BMI 32.8
--- NOTE | 2024-02-04 17:54 | ED_ITS ---
Discharge Plan Disposition Patient Disposition: Home, Self-Care Prescriptions Prescriptions: New ofloxacin 0.3 % drops 5 drp otic (ear) DAILY 7 Days Qty: 5 0RF No Action amoxicillin [amoxicillin] 875 mg tablet 875 mg PO Q12H Qty: 20 0RF benzonatate [benzonatate] 100 mg capsule 100 mg PO TIDP PRN (Reason: Cough) Qty: 30 0RF prednisone 10 mg tablet 10 mg PO BID 3 Days Qty: 6 0RF Referrals Follow up/Referrals: Provider,Referral, MD [Primary Care Provider] - See instructions Activity Restrictions/Add. Instructions Additional Instructions/Restrictions: At this time it was felt you are safe to be discharged home. If new or worsening symptoms please do not hesitate to return the emergency department. If symptoms persist please follow-up with your family doctor as you are able. Please take your antibiotic drops as prescribed. Clinical Impressions Clinical Impression: Otitis externa Qualifiers: Otitis externa type: unspecified type Chronicity: acute Laterality: left Qualified Code(s): H60.502 - Unspecified acute noninfective otitis externa, left ear Discharge ED Provider: Jose E Plasencia General Adult HPI General Chief complaint: Ear Stated complaint: right ear pain Time Seen by Provider: 02/04/24 17:01 Mode of Arrival: Ambulatory Source of Information: Patient Limitations: No Limitations Description of Symptoms (Recalled from ER Triage Doc. by RN): Patient report right ear pain since 3 yesterday. History of Present Illness HPI narrative: Patient is a 33-year-old male who presents emergency department for evaluation of right-sided ear pain. Onset was acute, since 3 AM this morning. Patient has used multiple Q-tips over the last few days. No other acute complaints at this time. Related Data Previous Rx's Medication Instructions Recorded amoxicillin 875 mg tablet 875 mg PO Q12H #20 tabs 02/14/23 benzonatate 100 mg capsule 100 mg PO TIDP PRN Cough #30 caps 02/14/23 prednisone 10 mg tablet 10 mg PO BID 3 days #6 tabs 02/14/23 ofloxacin 0.3 % ear drops 5 drp otic (ear) DAILY otitis 02/04/24 externa 7 days #5 mL Allergies Allergy/AdvReac Type Severity Reaction Status Date / Time No Known Allergies Allergy Verified 02/14/23 17:51 [facility] Disclaimer: The information contained in this section may have been updated after the patient was seen, as this information can be updated by other users. Medical History Kidney stone Migraine Surgical History No significant past surgical history Social History Smoking Status: Never smoker alcohol intake: never current occupational status: other Travel in the last 8 weeks: None ROS Obtained: Yes Systems reviewed as appropriate & no additional complaints except as documented Physical Exam General General appearance: alert and in no apparent distress Head Head exam: atraumatic and normocephalic Eye Eye exam: Present PERRL and EOMI ENT ENT exam: Present mucous membranes moist and other (Right external auditory canal is erythematous with some debris, no eschar. Pain when otoscope enters external auditory canal. No bulging TM.) Neck Neck exam: Present normal inspection Chest Chest inspection: Present normal inspection and symmetric chest wall rise Respiratory Respiratory exam: Absent respiratory distress Cardiovascular Cardiovascular exam: Present regular rate and normal rhythm Abdominal Exam Abdominal exam: Present soft Extremities Exam Extremities exam: Present normal inspection Neurological Exam Neurological exam: Present alert and CN II-XII intact; Absent motor sensory deficit Psychiatric Psychiatric exam: Present normal affect Skin Skin exam: Present warm and dry Medical Decision Making Tae Inquiry Pt receiving controlled substance: No Vital Signs: 02/04/24 17:00 Temperature 97.9 F Temperature Source Oral Pulse Rate [Radial] 95 H Respiratory Rate 16 Blood Pressure [Right Arm] 112/79 Blood Pressure Mean [Right Arm] 90 Blood Pressure Source [Right Arm] Automatic Cuff Blood Pressure Position [Right Arm] Sitting 02 Sat by Pulse Oximetry 96 Oxygen Delivery Method Room Air Medical Decision Narrative: In summary patient is a 33-year-old male with past medical history described above who presents emergency department for evaluation of ear pain. Clinically patient has otitis externa. No concern for mastoiditis as there is no anterior effacement of the pinna and patient has a nonfocal neurologic exam. Given this patient is appropriate for discharge at this time will be discharged with a course of ofloxacin and was given return precautions. Critical Care Critical Care Time Critical Care Time: No
[2024-02-04 17:57] VITALS: BP 127/73; PULSE 78; RESP 16; TEMP 36.7; O2SAT 99
== END 2024-02-04 18:00 | disposition home or self-care (01) ==
PROVIDERS: Emergency Provider Emergency Medicine
DX: H60.502 Unspecified acute noninfective otitis externa, left ear (principal); H92.01 Otalgia, right ear
CPT/HCPCS: 99283

== ENCOUNTER 2024-12-08 08:29 | Day surgery (SDC) | payer MEDICAID, SELFPAY ==
[2024-12-08] VITALS (21 sets, daily range): BP systolic 107–132; BP diastolic 59–105; PULSE 66–94; RESP 12–20; TEMP 36.9–43; O2SAT 90–100; BMI 36.6
--- NOTE | 2024-12-08 08:44 | ECG_ITS ---
APPROVED REPORT Exam: Resting ECG HR:86 bpm ECG Measurements Heart Rate 86 AXES TX 136 P 55 QRSd 96 QRS 65 QT 348 T 39 QTc 392 Conclusion SINUS RHYTHM NORMAL ECG UNCONFIRMED REPORT Electronically signed by : Ace Mahan, 12/08/2024 13:44:46
--- NOTE | 2024-12-08 08:44 | CT_ITS ---
PROCEDURE INFORMATION: Exam: CT Abdomen And Pelvis Without Contrast Exam date and time: 12/08/2024 9:00 AM Age: 34 years old Clinical indication: Abdominal pain; Other: Ruq/rlq; Additional info: Ruq/rlq abd pain TECHNIQUE: Imaging protocol: Computed tomography of the abdomen and pelvis without contrast. Radiation optimization: All CT scans at this facility use at least one of these dose optimization techniques: automated exposure control; mA and/or kV adjustment per patient size (includes targeted exams where dose is matched to clinical indication); or iterative reconstruction. COMPARISON: CT ABDOMEN PELVIS WO CON 04/28/2020 4:07 PM FINDINGS: Limitations: The absence of intravenous contrast limits the assessment of vascular structures, lesions and lymphadenopathy. Liver: Severe hepatic steatosis noted. Gallbladder and biliary ducts: Gallbladder is distended without radiopaque cholelithiasis. No biliary ductal dilation. Pancreas: No peripancreatic fluid stranding. No main pancreatic ductal dilation. Spleen: No splenomegaly. Adrenal glands: The adrenal glands are normal. Kidneys and ureters: No perinephric stranding. New, bilateral punctate caliceal calculi. No hydroureteronephrosis on either side. Stomach and bowel: Unremarkable. No obstruction. No mucosal thickening. Appendix: The appendix is situated in the right upper quadrant. The proximal appendix is prominent measuring 10 mm in the outer diameter. Moderate periappendiceal stranding noted. Intraperitoneal space: There is no evidence of free intraperitoneal or pelvic fluid. Vasculature: Scattered pelvic phleboliths noted Lymph nodes: No evidence of retroperitoneal or mesenteric lymphadenopathy. Urinary bladder: Urinary bladder is unremarkable. Reproductive: Unremarkable as visualized. Bones/joints: No acute osseous abnormality. Soft tissues: Unremarkable. IMPRESSION: 1. Findings suspicious for acute appendicitis. No perforation or discrete periappendiceal abscess. 2. Severe hepatic steatosis. 3. Bilateral nonobstructive nephrolithiasis, new from prior exam
--- NOTE | 2024-12-08 08:47 | ED_ITS ---
Discharge Plan Disposition Patient Disposition: Admitted Chief Complaint: Abdominal Pain Prescriptions Prescriptions: No Action No Known Home Medications Referrals Follow up/Referrals: Provider,Referral, [Primary Care Provider] - See instructions Clinical Impressions Clinical Impression: Acute appendicitis Instructions Patient Instructions: DI for Acute Abdominal Pain Print Language Print Language: Maori Discharge ED Provider: Kevin Mahan General Adult HPI General Chief complaint: Abdominal Pain Stated complaint: side pain, light headed, SOA Time Seen by Provider: 12/08/24 08:36 Mode of Arrival: Wheelchair Source of Information: Patient Description of Symptoms (Recalled from ER Triage Doc. by RN): r upper quad pain. started last night @ 2300. states the pain changes sometimes to go to the lower abdomen. History of Present Illness HPI narrative: Patient is a 34-year-old male presents today with right sided abdominal pain. States that it woke him up from sleep around 11 PM. Has a history of kidney stones states that this feels similar but is more severe. Locates it to the right upper and right lower side of his abdomen. No changes in urination aside from appearing darker. No fevers or chills no dysuria burning frequency or urgency. No changes in bowel movement. No association with food. Related Data Home Medications ?Medication ?Instructions ?Recorded ?Confirmed No Known Home Medications 12/08/24 12/08/24 Allergies Allergy/AdvReac Type Severity Reaction Status Date / Time No Known Allergies Allergy Verified 02/14/23 17:51 [facility] Disclaimer: The information contained in this section may have been updated after the patient was seen, as this information can be updated by other users. Medical History Kidney stone Migraine Surgical History No significant past surgical history Social History Smoking Status: Never smoker alcohol intake: never current occupational status: other Travel in the last 8 weeks: None Have you lived/traveled outside US in past 30 days?: No Contact w/someone who lives/traveled outside US past 30 days?: No Exposure to someone with infectious disease in past 14 days?: No Do you have a fever (greater than 100.4 F or 38 C)?: No Have you tested positive for COVID-19: No Exposed to someone with COVID-19 in past 14 days?: No Do you have a sore throat?: No Do you have a cough?: No Do you have any weakness?: No Do you have any diarrhea?: No Are you experiencing any unusual bleeding?: No Do you have any muscle aches/pain?: No Do you have any abdominal pain?: No Are you experiencing loss of taste or smell?: No Other Medical History Have you received the Flu Vaccine for this season: Yes Have you received the Pneumonia Vaccine: Yes ROS Obtained: Yes All systems reviewed & no additional complaints except as documented Physical Exam General General appearance: alert and in no apparent distress Respiratory Respiratory exam: Present normal lung sounds bilaterally Cardiovascular Cardiovascular exam: Present regular rate Abdominal Exam Abdominal exam: Present soft and tenderness (Right upper and right lower quadrant tenderness to palpation) Back Exam Back exam: Absent CVA tenderness (R) or CVA tenderness (L) Neurological Exam Neurological exam: Present alert and oriented X3 Medical Decision Making Medical Records Screening: Per USPSTF and CDC recommendations, given the prevalence of disease in our region, it is our hospital?s policy to screen for HIV and viral Hepatitis for all patients aged 18 and over and those with ongoing risk factors. Tae Inquiry Pt receiving controlled substance: No Vital Signs: 12/08/24 08:40 12/08/24 08:42 12/08/24 08:50 Temperature 99.1 F Temperature Source Oral Pulse Rate 84 87 Pulse Rate [Right] 94 H Respiratory Rate 18 20 18 Blood Pressure 131/88 118/72 Blood Pressure [Right Arm] 118/82 Blood Pressure Mean 100 92 Blood Pressure Mean [Right Arm] 94 02 Sat by Pulse Oximetry 98 95 96 Oxygen Delivery Method Room Air 12/08/24 09:07 12/08/24 09:10 12/08/24 09:20 Temperature Temperature Source Pulse Rate 90 80 84 Pulse Rate [Right] Respiratory Rate 18 18 18 Blood Pressure 108/87 L 107/73 L 121/69 Blood Pressure [Right Arm] Blood Pressure Mean 92 85 79 Blood Pressure Mean [Right Arm] 02 Sat by Pulse Oximetry 97 97 98 Oxygen Delivery Method 12/08/24 09:30 12/08/24 09:40 12/08/24 09:50 Temperature Temperature Source Pulse Rate 84 82 82 Pulse Rate [Right] Respiratory Rate 18 18 18 Blood Pressure 119/81 115/76 132/105 H Blood Pressure [Right Arm] Blood Pressure Mean 93 89 114 Blood Pressure Mean [Right Arm] 02 Sat by Pulse Oximetry 97 97 98 Oxygen Delivery Method Lab Data Lab results reviewed: Yes I reviewed the patient's lab results. Lab Results 12/08/24 08:46: WBC 13.9 H, RBC 4.81, Hgb 14.0 L, Hct 40.6 L, MCV 84.4, MCH 29.1, MCHC 34.5, RDW 12.9, Plt Count 222, MPV 8.7, Neut % (Auto) 90.4 H, Lymph % (Auto) 3.8 L, [place] % (Auto) 5.2, Eos % (Auto) 0.2, Baso % (Auto) 0.2, Neut # (Auto) 12.5 H, Lymph # (Auto) 0.5 L, [place] # (Auto) 0.7, Eos # (Auto) 0.0, Baso # (Auto) 0.0, Total Counted 100, Neutrophils % (Manual) 89 H, Lymphocytes % (Manual) 7 L, Monocytes % (Manual) 4, Platelet Estimate Normal, RBC Morphology Normal, Sodium 138, Potassium 4.2, Chloride 104, Carbon Dioxide 25, Anion Gap 13.2, BUN 13, Creatinine 0.90, Estimated Creat Clear 177, Estimated GFR 98, Est GFR ( Amer) 118, Glucose 123 H, Calcium 9.7, Total Bilirubin 0.8, AST 56, ALT 80 H, Alkaline Phosphatase 60, Total Protein 8.2, Albumin 5.1 H, Globulin 3.1, Albumin/Globulin Ratio 1.6, Lipase 63, Urine Color Yellow, Urine Appearance Clear, Urine pH 7.0, Ur Specific [place] 1.025, Urine Protein Negative, Urine Glucose (UA) Negative, Urine Ketones Negative, Urine Blood Negative, Urine Nitrate Negative, Urine Bilirubin Negative, Urine Urobilinogen 0.2, Ur Leukocyte Esterase Negative, Urine RBC Occasional, Urine WBC 3-5, Ur Squamous Epith Cells Occasional, Calcium Oxalate Crystal Trace, Urine Bacteria Trace, Urine Mucus Trace 12/08/24 08:46 12/08/24 08:46 Orders (Tests/Meds): ED MEDICATIONS Generic Name Dose Route Start Last Admin Trade Name Freq PRN Reason Stop Dose Admin Piperacillin Sod/Tazobactam 50 mls @ 100 mls/hr 12/08/24 09:52 Sod 3.375 gm/ Sodium Chloride IV 12/08/24 10:21 ONCE ONE Discontinued Medications Generic Name Dose Route Start Last Admin Trade Name Tone PRN Reason Stop Dose Admin Lactated Ringer's 1,000 mls @ 999 mls/hr 12/08/24 08:45 12/08/24 08:49 Lactated Ringer's 1000 Ml Bag IV 12/08/24 09:45 999 mls/hr .Q1H1M THIEN Administration Ketorolac Tromethamine 15 mg 12/08/24 08:44 12/08/24 08:49 Ketorolac 30mg/Ml Vial IV 12/08/24 08:45 15 mg ONCE ONE Administration Ondansetron HCl 4 mg 12/08/24 08:44 12/08/24 08:49 Ondansetron 4mg/2ml Vial IV 12/08/24 08:45 4 mg ONCE ONE Administration ORDERS Category Date Time Status CT abdomen pelvis wo con Stat Cat Scan 12/08/24 08:44 Completed POCUS Point of Care (ER Only) Stat Exams 12/08/24 08:45 Ordered CBC w/Auto Diff [Complete Blood Count Auto Diff] Stat Lab 12/08/24 08:46 Completed CMP [Comprehensive Metabolic Panel] Stat Lab 12/08/24 08:46 Completed HIV Combo Stat Lab 12/08/24 08:46 Received Hepatitis C Ab Qual. W/ RFX Stat Lab 12/08/24 08:46 Received Lipase Stat Lab 12/08/24 08:46 Completed UA [Urinalysis and Microscopic] Stat Lab 12/08/24 08:46 Completed Medical Decision Narrative: Well-appearing nontoxic 34-year-old presents today with right upper right lower quadrant abdominal pain that began suddenly. Differential includes perforated viscus, cholecystitis, biliary colic, bowel gas, kidney stone, bowel obstruction etc. Will obtain a bedside ultrasound to evaluate his gallbladder and get a noncontrasted CT scan in addition to labs and administer fluids Toradol and Zofran and reassess. Reassessment 958. Patient has a leukocytosis white blood cell count of 13. Additionally on CT scan with my personal interpretation there is periappendiceal stranding appendix is 10 mm at the upper limit of normal. This is consistent with acute appendicitis. Patient does have persistent tenderness in this region. No alternative diagnosis. I discussed the case with Dr. Leon who agrees to take the patient to the operating room. Patient is aware of this and agreeable to this plan. Procedures Miscellaneous Procedure Procedure Performed: Limited RUQ ultrasound Indication: Abdominal pain Identified structures: -Gallbladder -Gallbladder wall -Common bile duct -Liver Findings: Negative sonographic Blandon's no gallstones present anterior gallbladder wall thickness is normal no pericholecystic fluid common bile duct not well- visualized Impression: No evidence of acute cholecystitis Images were saved to permanent archive The study was technically adequate CPT 09793-69 This study was performed by me, and I personally interpreted all images/videos. Based on my clinical judgement, these images were adequate and did not necessitate further imaging. Critical Care Critical Care Time Critical Care Time: Yes Attestation: On 12/08/24, the high probability of a clinically significant, sudden or life threatening deterioration of the following system(s) required my full and direct attention, intervention and personal management. The time I documented below is in addition to time spent performing reported procedures but includes the following listed in this critical care notation. Total Time Total Critical Care Time: 35
[2024-12-08] MEDS: KETOROLAC 30MG/ML VIAL 15 MG IV (08:49)
[2024-12-08] MEDS: ONDANSETRON 4MG/2ML VIAL 4 MG IV ×2 (08:49→12:50)
[2024-12-08] MEDS: LACTATED RINGERS 1000ML 1,000 ML 999 ML IV (08:49)
[2024-12-08 08:56] LABS: Basophils % 0.2 % (0.1-2.0); Eosinophils % 0.2 % (0.1-12.0); Hematocrit 40.6 % (42.0-52.0); Lymphocytes # 0.5 K/mm3 (0.7-4.5); Lymphocytes % 3.8 % (10-50); Mean Corpuscular HGB Conc 34.5 g/dL (31.8-35.4); Mean Corpuscular Hemoglobin 29.1 pg (27.0-31.2); Mean Corpuscular Volume 84.4 fl (80-94); Mean Platelet Volume 8.7 fl (7.4-10.4); Monocytes # 0.7 K/mm3 (0.1-1.0); Monocytes % 5.2 % (1.7-9.3); Neutrophils # 12.5 K/mm3 (1.8-7.8); Neutrophils % 90.4 % (37.0-80.0); Platelet Count 222 K/mm3 (142-424); Red Blood Count 4.81 M/mm3 (4.60-6.20); Red Cell Distribution Width 12.9 % (11.5-17.5); White Blood Count 13.9 K/mm3 (4.8-10.8)
[2024-12-08 08:57] LABS: MANUAL DIFFERENTIAL MANUAL DIFFERENTIAL (MANUAL DIFF)
[2024-12-08 09:01] LABS: Microscopic, Urine URINE MICROSCOPIC (MICROSCOPIC)
[2024-12-08 09:03] LABS: Appearance,Urine CLEAR (Clear); Bilirubin,Urine Negative (Negative); Blood, Urine Negative (Negative); Color,Urine YELLOW (Yellow); Glucose,Urine (UA) Negative (Negative); Ketones,Urine Negative (Negative); Leukocyte Esterase,Urine Negative (Negative); Nitrate,Urine Negative (Negative); Protein,Urine Negative (Negative); Specific Gravity, Urine 1.025 (1.005-1.030); Urobilinogen,Urine 0.2 EU/dl (0.2)
[2024-12-08 09:06] LABS: Alanine Aminotransferase 80 U/L (12-78); Albumin Level 5.1 g/dl (3.5-5.0); Albumin/Globulin Ratio 1.6 (1.1-1.8); Alkaline Phosphatase 60 U/L (38-126); Anion Gap 13.2 mEq/L (5-15); Aspartate Amino Transferase 56 U/L (17-59); Bilirubin,Total 0.8 mg/dl (0.2-1.3); Blood Urea Nitrogen 13 mg/dl (9-20); Calcium 9.7 mg/dl (8.4-10.2); Carbon Dioxide 25 mmol/L (22.0-30.0); Chloride 104 mmol/L (98-107); Creatinine Clearance Estimated 177 mL/min (50-200); Estimated Glomerular Filt Rate 98 ml/min (>60); GFR (African American) 118 ML/MIN (>60); Globulin 3.1 g/dL (1.3-3.2); Glucose 123 mg/dl (74-100); Lipase 63 U/L (23-300); Potassium 4.2 mmoL/L (3.5-5.1); Sodium 138 mmol/L (136-145); Total Protein,Serum 8.2 g/dl (6.3-8.2)
[2024-12-08 09:16] LABS: RBC,Urine Occasional #/hpf (0-3); Squamous Epithelial Cell,Urine Occasional #/hpf (0-5)
[2024-12-08 09:17] LABS: Bacteria,Urine Trace /lpf; Calcium Oxalate Crystals,Urine Trace /lpf; Mucus,Urine Trace /lpf
[2024-12-08 09:20] LABS: Lymphocytes % 7 % (10-50); Monocytes % 4 % (2-9); Neutrophils % 89 % (42-76); Platelet Estimate Normal; RBC Morphology Normal; Total Cells Counted 100
--- NOTE | 2024-12-08 09:45 | PC.NURSE ---
DR PERKINS AT BEDSIDE TO UPDATE PT
--- NOTE | 2024-12-08 09:52 | PC.NURSE ---
speaking with surgeon
--- NOTE | 2024-12-08 09:58 | PC.NURSE ---
spoke with Wily Wolfe, Christ Pino and Kevin Osorio regarding pt going to surgery.
[2024-12-08] MEDS: PIPERCILLIN/TAZO 3.375 GM in 0.9 % SODIUM CHLORIDE 50 ML IV (10:26)
[2024-12-08 10:48] LABS: HIV Combo NEGATIVE (Negative)
[2024-12-08 10:56] LABS: Hepatitis C Ab Qual. W/ RFX NEGATIVE (Negative)
--- NOTE | 2024-12-08 11:10 | EXP.ANES.CKL ---
[facility] Disclaimer: The information contained in this section may have been updated after the patient was seen, as this information can be updated by other users. Medical History Kidney stone Migraine Surgical History No significant past surgical history Social History Smoking Status: Never smoker alcohol intake: never substance use type: denies use current occupational status: other Travel in the last 8 weeks: None [facility] Anesthesia Checklist Patient Identification Patient Identification: Verbal (Name & ) Structural Data Admitted From: Emergency Dept Planned Operative Procedure/s: appy Consent for Planned Operative Procedure(s) Verified: Yes NPO Status Verified Time NPO: 00:00 Airway Assessment Mallampati Score:: Class II C-Spine Mobility Assessed: Yes TMJ Mobility Assessed: Yes Dentition: Edentulous Neurological Assessment Level of Consciousness: Awake, Alert and Appropriate Anesthesia Plan Anesthesia Risk discussed: Yes Anesthesia Plan: Verified ASA Class: II Anesthesia Type: General
--- NOTE | 2024-12-08 11:30 | P.CONS_ITS ---
History of Present Illness *Reason for visit:: acute appendicitis *History of present illness: Mr. Hull is 34-year-old male with 12 hours of right lower quadrant pain. It awakened him out of sleep last night, and was severe in intensity, both sharp and burning in quality. He has never had pain like this before. He had 2 episodes of vomiting after. Pain is worse with sitting up or change in position. Denies fevers, denies any other symptoms. He is generally in good health, and has not seen a doctor in many years. He has ADHD and OCD, for which he is disabled. [facility] Disclaimer: The information contained in this section may have been updated after the patient was seen, as this information can be updated by other users. Medical History Kidney stone Migraine Surgical History No significant past surgical history Social History (Updated 12/08/24 @ 11:11 by Gerald Osorio CRNA) Smoking Status: Never smoker alcohol intake: never substance use type: denies use current occupational status: other Travel in the last 8 weeks: None Have you lived/traveled outside US in past 30 days?: No Contact w/someone who lives/traveled outside US past 30 days?: No Exposure to someone with infectious disease in past 14 days?: No Do you have a fever (greater than 100.4 F or 38 C)?: No Have you tested positive for COVID-19: No Exposed to someone with COVID-19 in past 14 days?: No Do you have a sore throat?: No Do you have a cough?: No Do you have any weakness?: No Do you have any diarrhea?: No Are you experiencing any unusual bleeding?: No Do you have any muscle aches/pain?: No Do you have any abdominal pain?: No Are you experiencing loss of taste or smell?: No Meds Home Medications and Allergies Home Medications ?Medication ?Instructions ?Recorded ?Confirmed ?Type No Known Home Medications 12/08/24 12/08/24 History New Prescriptions to Start Prescriptions: Allergies Allergy/AdvReac Type Severity Reaction Status Date / Time No Known Allergies Allergy Verified 02/14/23 17:51 Exam (Inpt) Vital signs and Labs for Last 24 Hours: Temp Pulse Resp BP Pulse Ox O2 Del Method 99.1 F 88 18 107/72 L 97 Room Air 12/08/24 10:55 12/08/24 10:55 12/08/24 10:55 12/08/24 10:55 12/08/24 10:41 12/08/24 10:55 Laboratory Results - last 24 hr 12/08/24 08:46: WBC 13.9 H, RBC 4.81, Hgb 14.0 L, Hct 40.6 L, MCV 84.4, MCH 29.1, MCHC 34.5, RDW 12.9, Plt Count 222, MPV 8.7, Neut % (Auto) 90.4 H, Lymph % (Auto) 3.8 L, [place] % (Auto) 5.2, Eos % (Auto) 0.2, Baso % (Auto) 0.2, Neut # (Auto) 12.5 H, Lymph # (Auto) 0.5 L, [place] # (Auto) 0.7, Eos # (Auto) 0.0, Baso # (Auto) 0.0, Total Counted 100, Neutrophils % (Manual) 89 H, Lymphocytes % (Manual) 7 L, Monocytes % (Manual) 4, Platelet Estimate Normal, RBC Morphology Normal, Sodium 138, Potassium 4.2, Chloride 104, Carbon Dioxide 25, Anion Gap 13.2, BUN 13, Creatinine 0.90, Estimated Creat Clear 177, Estimated GFR 98, Est GFR ( Amer) 118, Glucose 123 H, Calcium 9.7, Total Bilirubin 0.8, AST 56, ALT 80 H, Alkaline Phosphatase 60, Total Protein 8.2, Albumin 5.1 H, Globulin 3.1, Albumin/Globulin Ratio 1.6, Lipase 63, Urine Color Yellow, Urine Appearance Clear, Urine pH 7.0, Ur Specific [place] 1.025, Urine Protein Negative, Urine Glucose (UA) Negative, Urine Ketones Negative, Urine Blood Negative, Urine Nitrate Negative, Urine Bilirubin Negative, Urine Urobilinogen 0.2, Ur Leukocyte Esterase Negative, Urine RBC Occasional, Urine WBC 3-5, Ur Squamous Epith Cells Occasional, Calcium Oxalate Crystal Trace, Urine Bacteria Trace, Urine Mucus Trace, HCV Ab FARHAD w/Rflx PCR Qn Negative, HIV Ag/Ab Combo Qual Negative I & O for Labs for Last 24 Hours: Intake & Output 12/05/24 12/06/24 12/07/24 12/08/24 23:59 23:59 23:59 23:59 Weight 234 lb Constitutional: no acute distress Head: Present normocephalic and atraumatic Neck: Present normal inspection, full ROM and trachea midline Respiratory: Present CTA bilaterally Cardiac: Present Reg Rate and Rhythm GI: Present soft; Absent distention Comments:: Tenderness to palpation of the right lower quadrant with involuntary guarding and rebound. No surgical scars. Rectal (male): Present deferred (male): Present deferred Extremities: Present normal inspection; Absent edema Skin: Present intact and dry Comment:: Rapid speech. Strange affect. Results Labs 12/08/24 08:46 12/08/24 08:46 Labs: Laboratory Results - last 24 hr 12/08/24 08:46: WBC 13.9 H, RBC 4.81, Hgb 14.0 L, Hct 40.6 L, MCV 84.4, MCH 29.1, MCHC 34.5, RDW 12.9, Plt Count 222, MPV 8.7, Neut % (Auto) 90.4 H, Lymph % (Auto) 3.8 L, [place] % (Auto) 5.2, Eos % (Auto) 0.2, Baso % (Auto) 0.2, Neut # (Auto) 12.5 H, Lymph # (Auto) 0.5 L, [place] # (Auto) 0.7, Eos # (Auto) 0.0, Baso # (Auto) 0.0, Total Counted 100, Neutrophils % (Manual) 89 H, Lymphocytes % (Manual) 7 L, Monocytes % (Manual) 4, Platelet Estimate Normal, RBC Morphology Normal, Sodium 138, Potassium 4.2, Chloride 104, Carbon Dioxide 25, Anion Gap 13.2, BUN 13, Creatinine 0.90, Estimated Creat Clear 177, Estimated GFR 98, Est GFR ( Amer) 118, Glucose 123 H, Calcium 9.7, Total Bilirubin 0.8, AST 56, ALT 80 H, Alkaline Phosphatase 60, Total Protein 8.2, Albumin 5.1 H, Globulin 3.1, Albumin/Globulin Ratio 1.6, Lipase 63, Urine Color Yellow, Urine Appearance Clear, Urine pH 7.0, Ur Specific [place] 1.025, Urine Protein Negative, Urine Glucose (UA) Negative, Urine Ketones Negative, Urine Blood Negative, Urine Nitrate Negative, Urine Bilirubin Negative, Urine Urobilinogen 0.2, Ur Leukocyte Esterase Negative, Urine RBC Occasional, Urine WBC 3-5, Ur Squamous Epith Cells Occasional, Calcium Oxalate Crystal Trace, Urine Bacteria Trace, Urine Mucus Trace, HCV Ab FARHAD w/Rflx PCR Qn Negative, HIV Ag/Ab Combo Qual Negative Imaging CT scan - abdomen: report reviewed and image reviewed Assessment and Plan *Assessment and plan (1) Acute appendicitis: Status: Acute Category: Medical Code(s): K35.80 - Unspecified acute appendicitis Plan 34-year-old male with acute appendicitis. He received Zosyn in the emergency room. Proceed urgently to the OR for laparoscopic appendectomy. The risk, benefits, and alternatives to the procedure were explained to the patient and his brother and the patient gave informed consent. Postoperatively, if he can tolerate diet, ambulate, and his pain is reasonably controlled, he can be discharged later today or tomorrow.
[2024-12-08] MEDS: SODIUM CHLORIDE IRRIG SOLUTION 3,000 ML 999 ML IR (11:57)
[2024-12-08] MEDS: BUPIVACAINE 0.25% 30ML VIAL 75 MG (11:57)
--- NOTE | 2024-12-08 12:32 | P.OP_ITS ---
Date of procedure: 12/08/24 Pre-op Diagnosis:: Acute appendicitis Post-op Diagnosis:: Acute appendicitis Procedure performed:: Laparoscopic appendectomy Surgeon:: Loren Leon MD [employer] CAPTAIN:: Gerald Osorio Anesthesia: GETChrist Estimated blood loss (mL): 5 Clinical Note:: Mr. Ronnie Hull is a 34-year-old male who presented with right lower quadrant abdominal pain and vomiting. A CT scan showed acute appendicitis. He is brought to the operating room for laparoscopic appendectomy. The risk, benefits, and alternatives were explained to the patient and he gave informed consent. Operative findings:: Short inflamed appendix without perforation Operative note:: After informed consent was taken, the patient was taken to the operating room and laid in the supine position. General anesthesia was given by anesthesia staff. A Briones catheter was placed. The abdomen was prepped and draped sterilely. A longitudinal incision was made below the umbilicus and blunt dissection was used until the umbilical stalk could be grasped. The fascia was incised carefully without evidence of underlying visceral injury, and then a 12 mm trocar was placed. The abdomen was insufflated to 60 mmHg. Diagnostic laparoscopy was performed, and there was no evidence of injury from the entrance technique. 2 additional 5 mm ports were placed in the supraumbilical and left lower quadrant locations. The cecum was a little more superior than is usually seen. The appendix was identified, and was noted to be short, inflamed, and thickened. There was no evidence of perforation. A window was made at the base of the appendix, and the appendix was divided with a LOLLY stapler. The mesoappendix was divided with harmonic scalpel. The appendix was placed in Endo Catch bag and removed through the 12 mm port site. The area was examined. The staple line was intact, there were no thermal or other injuries to the bowel, and hemostasis was excellent. Both 5 mm ports were removed and replaced under direct visualization and there was no bleeding. The 12 mm port was removed. The umbilical fascia was closed with a [id number] 0 Vicryl suture. All skin incisions were closed with 3-0 Monocryl and skin glue. A total of 20 mL of quarter percent Marcaine was instilled into the incisions. Patient was awakened and taken recovery in good condition. He tolerated procedure well. Condition: stable Disposition: PACU Complications:: None immediate
--- NOTE | 2024-12-08 12:43 | EXP.ANES.I ---
[facility] Anesthesia Record Part I Anesthesia Record I Intake, IV Amount: 2,000 Hydration: Adequate Estimated blood loss (mL): 0 Urine output (mL): 100 Blood Pressure: 123/59 SaO2: 97 Pulse Rate: 75 Airway Patency: Patent Respiratory Rate: 12 Temperature: 98.5 F Patient is:: Awake and Stable Stable to PACU at:: 12:35
[2024-12-08] MEDS: MORPHINE 2MG/ML SYRINGE 2 MG IV (12:50)
--- NOTE | 2024-12-10 13:06 | EXP.ANES.II ---
[facility] Anesthesia Record Part II Anesthesia Record Part II Discharge Time: 13:02 Destination: Surgical Day Care (OP Surgery) PACU nurse assessment reviewed?: Yes Patient Condition:: Good Anesthesia Complications:: None Swallowing reflex intact?: Yes Airway Patency: Patent Cyanosis?: No Blood Pressure: 119/82 SaO2: 96 Respiratory Rate: 17 Pulse Rate: 66 Temperature: 98.6 F Mental Status: Alert & Oriented Pain level:: 7 Nausea and/or vomitting:: None Intake, IV Amount: 0 Hydration: Adequate
[2024-12-10 13:07] VITALS: BP 119/82; PULSE 66; RESP 17; TEMP 37; O2SAT 96
== END 2024-12-08 13:40 | disposition home or self-care (01) ==
LOC: ER 10:12 → OR 10:56
PROVIDERS: Emergency Provider Student in an Organized Health Care Education/Training Program; Visit Provider Surgery
PROC: 0DTJ4ZZ Resection of Appendix, Percutaneous Endoscopic Approach (ICD-10-PCS; CPT 44970; principal; 2024-12-08 11:00)
DX: K35.80 Unspecified acute appendicitis (principal)
CPT/HCPCS: 44970; 74176; 80053; 81001; 83690; 85007; 85025; 85027; 86803; 87086; 87389; 93005; 99285; J1100; J1596; J1885; J2250; J2270; J2405; J2543; J2710; J3010; J7120

== ENCOUNTER 2025-02-04 22:07 | Emergency (ER) | payer MEDICAID, SELFPAY ==
[2025-02-04 23:12] VITALS: BP 142/87; PULSE 68; RESP 18; TEMP 36.4; O2SAT 98; BMI 32.6
--- NOTE | 2025-02-04 23:25 | CT_ITS ---
PROCEDURE INFORMATION: Exam: CT Abdomen And Pelvis With Contrast Exam date and time: 02/04/2025 11:49 PM Age: 34 years old Clinical indication: Abdominal pain; Additional info: R flank pain radiating down TECHNIQUE: Imaging protocol: Computed tomography of the abdomen and pelvis with contrast. Total images: 332 Radiation optimization: All CT scans at this facility use at least one of these dose optimization techniques: automated exposure control; mA and/or kV adjustment per patient size (includes targeted exams where dose is matched to clinical indication); or iterative reconstruction. Contrast material: ISOVUE; Contrast volume: 75 ml; Contrast route: IV; COMPARISON: CT ABDOMEN PELVIS WO CON 12/08/2024 9:00 AM FINDINGS: Lungs: Lung bases are clear. Heart: Normal heart size. Liver: Similar severe hepatic steatosis. Otherwise, unremarkable liver. Gallbladder and biliary ducts: Normal. No calcified stones. No ductal dilation. Pancreas: Normal. No ductal dilation. Spleen: Heterogeneous splenic enhancement compatible phase of contrast. No splenomegaly. Adrenal glands: Normal. No mass. Kidneys and ureters: Multiple nonobstructing left intrarenal calculi. No left hydronephrosis. Mild right hydronephrosis and proximal right hydroureter. No ureteral stones. Slight delayed right nephrogram. Multifocal right renal cortical scarring. No renal mass. Minor right perinephric edema. Stomach and bowel: Unremarkable stomach and duodenum. No ileus or bowel obstruction. Unremarkable small bowel and terminal ileum. Unremarkable colon and rectum. Appendix: Status post appendectomy. Intraperitoneal space: Unremarkable. No free air. No significant fluid collection. Vasculature: Nonaneurysmal abdominal aorta. Major abdominal vessels enhance appropriately. Pelvic phleboliths. Lymph nodes: Unremarkable. No enlarged lymph nodes. Urinary bladder: Collapsed bladder. No bladder stones. Reproductive: Nonenlarged prostate. Bones/joints: Unremarkable. No acute fracture. Soft tissues: Periumbilical scarring. IMPRESSION: 1. Mild right hydroureteronephrosis of undetermined etiology. No obstructing stones. Question recently passed calculus versus sequela of ascending urinary tract infection. 2. No focal pyelonephritis or perinephric fluid. 3. Left nephrolithiasis. 4. Similar pattern of severe hepatic steatosis. 5. Status post appendectomy.
[2025-02-04 23:30] VITALS: BP 122/80; PULSE 52; O2SAT 98
[2025-02-04 23:35] LABS: Albumin Level 4.8 g/dl (3.5-5.0); Chloride 106 mmol/L (98-107); Potassium 3.8 mmoL/L (3.5-5.1); Sodium 140 mmol/L (136-145)
[2025-02-04 23:37] LABS: Blood Urea Nitrogen 16 mg/dl (9-20); Creatinine Clearance Estimated 125 mL/min (50-200); Estimated Glomerular Filt Rate 70 ml/min (>60); GFR (African American) 85 ML/MIN (>60)
--- NOTE | 2025-02-04 23:37 | HMH.EDGENADL ---
Discharge Plan Disposition Patient Disposition: Home, Self-Care Condition: Good Prescriptions Prescriptions: New tamsulosin 0.4 mg capsule 0.4 mg PO HS Qty: 10 0RF No Action oxycodone-acetaminophen 5-325 mg tablet 1 tab PO Q6H PRN (Reason: pain) Qty: 11 0RF Referrals Follow up/Referrals: Clay Hodges MD [Staff Physician] - See instructions (R hydroureter [place] from recently passed stone, please reeval) Provider,MD Savita [Primary Care Provider] - See instructions Activity Restrictions/Add. Instructions Additional Instructions/Restrictions: You were evaluated in the ER and are appropriate for discharge at this time. Make an appointment with your primary care doctor for reevaluation in 2 to 3 days. Drink plenty of water. Also take the prescribed tamsulosin as directed. Follow-up with Dr. Hodges with urology for reevaluation. Call his office for an appointment as soon as possible. Return to the ER with any new, worsening, or otherwise concerning symptoms. Clinical Impressions Clinical Impression: Hydroureter on right Instructions Patient Instructions: DI for Acute Abdominal Pain Print Language Print Language: Puerto Rican Discharge ED Provider: Jose E Plasencia General Adult HPI General Chief complaint: Abdominal Pain Stated complaint: R Lower Abdominal Pain Time Seen by Provider: 02/04/25 23:25 Mode of Arrival: Ambulatory Source of Information: Patient Description of Symptoms (Recalled from ER Triage Doc. by RN): Pt states at approx noon this date he began having right side flank pain with epidose of vomiting. Pt states he has had appendectomy but thinks he still has gallbladder. Pt report pain 10/10 with smile during triage. History of Present Illness HPI narrative: 34-year-old male presents to the ER with complaints of right flank pain that he initially stated that he started around noon today, however on further discussion he admits started approximately 3 to 4 hours prior to arrival. Patient reports he ate a burger and shortly thereafter he had acute right side flank pain that caused nausea and vomiting. He states that the vomiting helped his pain and a while later the pain came back, it was 10 out of 10 but his gotten significantly better while resting in the ER. He denies fevers or chills, no chest pain or difficulty breathing, no diarrhea, constipation, dysuria, or hematuria. No reported history of kidney stones. Patient had appendectomy a couple months ago according to him. No recent illness Related Data Previous Rx's ?Medication ?Instructions ?Recorded oxycodone-acetaminophen 5 mg-325 1 tab PO Q6H PRN pain #11 tabs 12/08/24 mg tablet tamsulosin 0.4 mg capsule 0.4 mg PO HS #10 caps 02/05/25 Allergies Allergy/AdvReac Type Severity Reaction Status Date / Time No Known Allergies Allergy Verified 12/19/24 09:56 [facility] Disclaimer: The information contained in this section may have been updated after the patient was seen, as this information can be updated by other users. Medical History (Updated 02/05/25 @ 00:24 by He Waddell MD) Migraine Kidney stone Surgical History (Updated 12/19/24 @ 10:04 by Blayne Ojeda MD) History of laparoscopic appendectomy Social History Smoking Status: Never smoker alcohol intake: never substance use type: denies use current occupational status: other Travel in the last 8 weeks?: None Have you lived/traveled outside US in past 30 days?: No Contact w/someone who lives/traveled outside US past 30 days?: No Exposure to someone with infectious disease in past 14 days?: No Do you have a fever (greater than 100.4 F or 38 C)?: No Have you tested positive for COVID-19?: No Exposed to someone with COVID-19 in past 14 days?: No Do you have a sore throat?: No Do you have a cough?: No Do you have any weakness?: No Do you have any diarrhea?: No Are you experiencing any unusual bleeding?: No Do you have any muscle aches/pain?: No Do you have any abdominal pain?: No Are you experiencing loss of taste or smell?: No Other Medical History Have you received the Flu Vaccine for this season: Yes Have you received the Pneumonia Vaccine: Yes ROS Obtained: Yes Systems reviewed as appropriate & no additional complaints except as documented per HPI Physical Exam General General appearance: alert and in no apparent distress Head Head exam: atraumatic and normocephalic Eye Eye exam: Present PERRL and EOMI ENT ENT exam: Present mucous membranes moist Neck Neck exam: Present normal inspection and full ROM Chest Chest inspection: Present symmetric chest wall rise Respiratory Respiratory exam: Absent respiratory distress or stridor Cardiovascular Cardiovascular exam: Present regular rate and normal rhythm Abdominal Exam Abdominal exam: Present soft; Absent distention or tenderness Abdominal tenderness: Absent RUQ Comment: Currently no reproducible pain on exam Extremities Exam Extremities exam: Present full ROM Back Exam Back exam: Absent tenderness, CVA tenderness (R) or CVA tenderness (L) Neurological Exam Neurological exam: Present alert and oriented X3; Absent motor sensory deficit Psychiatric Psychiatric exam: Present normal affect and normal mood Skin Skin exam: Present warm and dry Medical Decision Making Medical Records Medical records reviewed: Yes I reviewed the patient's medical records. Screening: Per USPSTF and CDC recommendations, given the prevalence of disease in our region, it is our hospital?s policy to screen for HIV and viral Hepatitis for all patients aged 18 and over and those with ongoing risk factors. MR Comment: General surgery notes demonstrate patient had appendectomy 12/08/2024 Tae Inquiry Pt receiving controlled substance: No Vital Signs: 02/04/25 23:12 02/04/25 23:30 02/05/25 00:00 Temperature 97.6 F Temperature Source Oral Pulse Rate 52 L Pulse Rate [Left] 68 Respiratory Rate 18 Blood Pressure 122/80 131/80 Blood Pressure [Right Arm] 142/87 H Blood Pressure Mean 91 Blood Pressure Mean [Right Arm] 105 Blood Pressure Source Blood Pressure Source [Right Arm] Automatic Cuff Blood Pressure Position 02 Sat by Pulse Oximetry 98 98 Oxygen Delivery Method Room Air Room Air 02/05/25 00:47 Temperature 98.6 F Temperature Source Oral Pulse Rate 82 Pulse Rate [Left] Respiratory Rate 20 Blood Pressure 130/74 Blood Pressure [Right Arm] Blood Pressure Mean Blood Pressure Mean [Right Arm] Blood Pressure Source Automatic Cuff Blood Pressure Source [Right Arm] Blood Pressure Position Sitting 02 Sat by Pulse Oximetry Oxygen Delivery Method Room Air Lab Data Lab Results 02/04/25 23:19: WBC 8.5, RBC 4.56 L, Hgb 13.2 L, Hct 39.1 L, MCV 85.7, MCH 28.9, MCHC 33.8, RDW 13.0, Plt Count 247, MPV 8.9, Neut % (Auto) 82.7 H, Lymph % (Auto) 10.6, [place] % (Auto) 5.2, Eos % (Auto) 0.9, Baso % (Auto) 0.4, Neut # (Auto) 7.1, Lymph # (Auto) 0.9, [place] # (Auto) 0.4, Eos # (Auto) 0.1, Baso # (Auto) 0.0, PT 11.2, INR 1.01, Sodium 140, Potassium 3.8, Chloride 106, Carbon Dioxide 26, Anion Gap 11.8, BUN 16, Creatinine 1.20, Estimated Creat Clear 125, Estimated GFR 70, Est GFR ( Amer) 85, Glucose 106 H, Calcium 9.8, Total Bilirubin 0.5, AST 43, ALT 51, Alkaline Phosphatase 73, Total Protein 7.7, Albumin 4.8, Globulin 2.9, Albumin/Globulin Ratio 1.7, Lipase 64 02/04/25 23:40: Urine Color Yellow, Urine Appearance Clear, Urine pH 6.0, Ur Specific [place] >= 1.030, Urine Protein Trace, Urine Glucose (UA) Negative, Urine Ketones Negative, Urine Blood 3+ A, Urine Nitrate Negative, Urine Bilirubin 1+ A, Urine Urobilinogen 0.2, Ur Leukocyte Esterase Negative, Urine RBC 50-100, Urine WBC Occasional, Ur Squamous Epith Cells Occasional, Calcium Oxalate Crystal Trace, Urine Bacteria Trace 02/04/25 23:19 02/04/25 23:19 Orders (Tests/Meds): ED MEDICATIONS Discontinued Medications Generic Name Dose Route Start Last Admin Trade Name Freq PRN Reason Stop Dose Admin Iopamidol 75 ml 02/04/25 23:53 02/04/25 23:54 Iopamidol-370 (76%);100ml Bottle IV 02/04/25 23:54 75 ml ONCE ONE Administration Ketorolac Tromethamine 30 mg 02/04/25 23:25 02/04/25 23:44 Ketorolac 30mg/Ml Vial IV 02/04/25 23:26 30 mg ONCE ONE Administration Ondansetron HCl 4 mg 02/04/25 23:25 02/04/25 23:44 Ondansetron 4mg/2ml Vial IV 02/04/25 23:26 4 mg ONCE ONE Administration Sodium Chloride 10 ml 02/04/25 23:53 02/04/25 23:54 Sodium Chloride 0.9% 10ml Syr (Rad Only) IV 03/06/25 23:52 10 ml NEEDED PRN Administration Maintain IV Site Tamsulosin HCl 0.4 mg 02/05/25 00:23 02/05/25 00:47 Tamsulosin 0.4mg Capsule PO 02/05/25 00:24 0.4 mg ONCE ONE Administration ORDERS Category Date Time Status CT abdomen pelvis w con Stat Cat Scan 02/04/25 23:25 Completed Complete Blood Count Auto Diff Stat Lab 02/04/25 23:19 Completed Comprehensive Metabolic Panel Stat Lab 02/04/25 23:19 Completed Lipase Stat Lab 02/04/25 23:19 Completed Prothrombin Time INR Stat Lab 02/04/25 23:19 Completed Urinalysis and Microscopic Stat Lab 02/04/25 23:40 Completed Medical Decision Narrative: In summary, this 34-year-old male with comorbidities described in the HPI presents to the emergency department today with right side abdominal pain. On initial evaluation patient is hemodynamically stable, afebrile, patient does not have any reproducible pain on exam. Differential diagnosis includes but is not limited to biliary colic, renal colic, kidney stone, hydronephrosis, hydroureter, pancreatitis, viral syndrome, mesenteric adenitis, among others. Based on these concerns, I ordered serum labs, CT imaging. Patient received Toradol, Zofran for treatment. Labs personally reviewed demonstrate no leukocytosis, mild anemia,, PT/INR, CMP nonactionable, lipase normal reassuring against pancreatitis, UA with some red cells but no evidence of infection. CT abdomen pelvis personally interpreted demonstrates no ureteral lithiasis, no evidence of biliary pathology, patient has mild right hydroureter/hydronephrosis concerning for possible recently passed kidney stone. See radiology read for final interpretation. With these findings as well as the blood in the urine, I believe the patient most likely had a rapid transit kidney stone that he has since passed. I explained the findings of the workup to the patient and family at bedside. They understand. I gave the patient a dose of tamsulosin in the ER to help with continued flow and prescribed this as well. I gave him referral to Dr. Hodges for outpatient reevaluation to ensure the hydroureter/hydronephrosis has resolved and to recheck the hematuria. Patient was given instructions on symptomatic management, follow up instructions, and return precautions for the emergency department. Patient indicated understanding and was discharged in stable condition. Critical Care Critical Care Time Critical Care Time: No
[2025-02-04 23:38] LABS: Alanine Aminotransferase 51 U/L (12-78); Albumin/Globulin Ratio 1.7 (1.1-1.8); Alkaline Phosphatase 73 U/L (38-126); Anion Gap 11.8 mEq/L (5-15); Aspartate Amino Transferase 43 U/L (17-59); Bilirubin,Total 0.5 mg/dl (0.2-1.3); Calcium 9.8 mg/dl (8.4-10.2); Carbon Dioxide 26 mmol/L (22.0-30.0); Globulin 2.9 g/dL (1.3-3.2); Glucose 106 mg/dl (74-100); Lipase 64 U/L (23-300); Total Protein,Serum 7.7 g/dl (6.3-8.2)
[2025-02-04 23:39] LABS: INR 1.01 (0.9-1.1); Prothrombin Time 11.2 seconds (10.1-12.5)
[2025-02-04] MEDS: ONDANSETRON 4MG/2ML VIAL 4 MG IV (23:44)
[2025-02-04] MEDS: KETOROLAC 30MG/ML VIAL 30 MG IV (23:44)
[2025-02-04 23:47] LABS: Microscopic, Urine URINE MICROSCOPIC (MICROSCOPIC)
[2025-02-04 23:48] LABS: Appearance,Urine CLEAR (Clear); Blood, Urine 3+ (Negative); Color,Urine YELLOW (Yellow); Glucose,Urine (UA) Negative (Negative); Ketones,Urine Negative (Negative); Leukocyte Esterase,Urine Negative (Negative); Nitrate,Urine Negative (Negative); Protein,Urine TRACE (Negative); Specific Gravity, Urine >= 1.030 (1.005-1.030); Urobilinogen,Urine 0.2 EU/dl (0.2)
[2025-02-04 23:53] LABS: Bilirubin,Urine 1+ (Negative)
[2025-02-04 23:54] LABS: Bacteria,Urine Trace /lpf; Calcium Oxalate Crystals,Urine Trace /lpf; RBC,Urine 50-100 #/hpf (0-3); Squamous Epithelial Cell,Urine Occasional #/hpf (0-5); WBC,Urine Occasional #/hpf (0-3)
[2025-02-04] MEDS: IOPAMIDOL-370 (76%);100ML BOTTLE 75 ML IV (23:54)
[2025-02-04] MEDS: SODIUM CHLORIDE 0.9% 10ML SYR (RAD ONLY) 10 ML IV (23:54)
[2025-02-04 23:56] LABS: Basophils % 0.4 % (0.1-2.0); Eosinophils # 0.1 Kmm3 (0.0-0.4); Eosinophils % 0.9 % (0.1-12.0); Hematocrit 39.1 % (42.0-52.0); Hemoglobin 13.2 g/dL (14.1-18.0); Immature Granulocytes # 0.02 10^3uL; Immature Granulocytes % 0.2 %; Lymphocytes # 0.9 K/mm3 (0.7-4.5); Lymphocytes % 10.6 % (10-50); Mean Corpuscular HGB Conc 33.8 g/dL (31.8-35.4); Mean Corpuscular Hemoglobin 28.9 pg (27.0-31.2); Mean Corpuscular Volume 85.7 fl (80-94); Mean Platelet Volume 8.9 fl (7.4-10.4); Monocytes # 0.4 K/mm3 (0.1-1.0); Monocytes % 5.2 % (1.7-9.3); Neutrophils # 7.1 K/mm3 (1.8-7.8); Neutrophils % 82.7 % (37.0-80.0); Nucleated Red Blood Cells # 0 10^3/uL; Nucleated Red Blood Cells % 0 %; Platelet Count 247 K/mm3 (142-424); Red Blood Count 4.56 M/mm3 (4.60-6.20); Red Cell Distribution Width-SD 39.8 fL; White Blood Count 8.5 K/mm3 (4.8-10.8)
[2025-02-05] VITALS: BP 131/80
[2025-02-05 00:47] VITALS: BP 130/74; PULSE 82; RESP 20; TEMP 37; O2SAT 100
[2025-02-05] MEDS: TAMSULOSIN 0.4MG CAPSULE 0.4 MG PO (00:47)
== END 2025-02-05 00:53 | disposition home or self-care (01) ==
PROVIDERS: Emergency Medicine; Emergency Provider Emergency Medicine
DX: N13.30 Unspecified hydronephrosis (principal); N13.4 Hydroureter; R10.31 Right lower quadrant pain; R11.2 Nausea with vomiting, unspecified
CPT/HCPCS: 74177; 80053; 81001; 83690; 85025; 85610; 96374; 96375; 99285; J1885; J2405; Q9967

== ENCOUNTER 2025-05-14 09:43 | Outpatient (CLI) | payer SELFPAY ==
--- OUTSIDE RECORDS SUMMARY | 2025-05-14 09:45 | XMS_ITS | Clinical Summary ---
Author Organization [place] [facility] Address [address] [place] [address] Phone Care Team Providers Care Science Education Professor Name Role Phone Unavailable Primary Care Provider Unavailabl e Allergies No known active allergies Medications methylphenidate (CONCERTA) 54 mg CR tablet Take 54 mg by mouth daily. Active Active Problems Problem Noted Date Diagnosed Date ADHD (attention deficit hyperactivity disorder) 01/15/2010 Social History Tobacco Use Types Packs/Day Years Used Date Smoking Tobacco: Never Alcohol Use Standard Drinks/Week Comments No 0 (1 standard drink = 0.6 oz pur e alcohol) Sex and Gender Information Value Date Recorded Sex Assigned at Not on file Legal Sex Male 9:48 PM EDT Gender Identity Not on file Sexual Orientation Not on file Obstetrics History Plan of Treatment Health Maintenance Due Date Last Done Comments Annual Wellness Exam 1995 DTaP/TDaP/Td (1 - Tdap) 2011 Hepatitis B Vaccine (1 of 3 - 19+ 3-dose series) 2011 COVID-19 Vaccine (2023-2 5 season) 2024 Influenza Vaccine (#1) 2025 Meningococcal B Vaccine Aged Out No l onger eligible based on patient's age to complete this topic Pneumococcal Vaccine 0-49 Aged Out No longer eligible based on patient's age to complete this topic Insurance MEDICAID [place]
[2025-05-14 10:21] LABS: Hematocrit 41.8 % (42.0-52.0); Hemoglobin 14.4 g/dL (14.1-18.0); Immature Granulocytes % 0.3 %; Mean Corpuscular HGB Conc 34.4 g/dL (31.8-35.4); Mean Corpuscular Hemoglobin 29.1 pg (27.0-31.2); Mean Corpuscular Volume 84.6 fl (80-94); Nucleated Red Blood Cells % 0 %; Platelet Count 223 K/mm3 (142-424); Red Blood Count 4.94 M/mm3 (4.60-6.20); Red Cell Distribution Width-SD 38.5 fL; White Blood Count 3.9 K/mm3 (4.8-10.8)
[2025-05-14 11:14] LABS: Chloride 106 mmol/L (98-107); Potassium 4.1 mmoL/L (3.5-5.1); Sodium 139 mmol/L (136-145)
[2025-05-14 11:16] LABS: Amylase 57 U/L (30-110); Blood Urea Nitrogen 14 mg/dl (9-20); Creatinine,Serum 0.90 mg/dl (0.66-1.25); Estimated Glomerular Filt Rate 97 ml/min (>60); GFR (African American) 118 ML/MIN (>60)
[2025-05-14 11:17] LABS: Alanine Aminotransferase 55 U/L (12-78); Alkaline Phosphatase 57 U/L (38-126); Aspartate Amino Transferase 51 U/L (17-59); Bilirubin,Total 0.8 mg/dl (0.2-1.3); Calcium 9.8 mg/dl (8.4-10.2); Glucose 93 mg/dl (74-100); Lipase 70 U/L (23-300); Magnesium 2.0 mg/dl (1.6-2.3); Total Protein,Serum 7.5 g/dl (6.3-8.2)
[2025-05-14 11:18] LABS: Cholesterol 193 mg/dl (140-200); HDL Cholesterol 39 mg/dl (40-60); Triglycerides 132 mg/dl (30-150)
[2025-05-14 11:47] LABS: Thyroid Stimulating Hormone 1.45 uIU/mL (0.465-4.68)
[2025-05-14 13:00] LABS: Anion Gap 10.1 mEq/L (5-15); Carbon Dioxide 27 mmol/L (22.0-30.0)
[2025-05-14 13:01] LABS: Albumin Level 4.7 g/dl (3.5-5.0); Albumin/Globulin Ratio 1.7 (1.1-1.8); Globulin 2.8 g/dL (1.3-3.2)
[2025-05-14 13:59] LABS: Vitamin B12 494 pg/mL (239-931)
[2025-05-15 12:28] LABS: Triiodothyronine (T3) Free 4.1 pg/mL (2.0-4.4)
== END 2025-05-14 23:59 | disposition home or self-care (01) ==
PROVIDERS: PCP Nurse Practitioner Family; Visit Provider Nurse Practitioner Family
DX: K21.9 Gastro-esophageal reflux disease without esophagitis (principal); G47.00 Insomnia, unspecified; R10.13 Epigastric pain; Z13.220 Encounter for screening for lipoid disorders
CPT/HCPCS: 36415; 80053; 80061; 82150; 82607; 83013; 83690; 83735; 84443; 84481; 85025

== ENCOUNTER 2025-05-29 19:32 | Emergency (ER) | payer OTHER, SELFPAY ==
[2025-05-29 19:40] VITALS: BP 153/70; PULSE 77; RESP 16; TEMP 36.8; O2SAT 97; BMI 32.5
--- NOTE | 2025-05-29 19:48 | ED_ITS ---
Discharge Plan Disposition Patient Disposition: Home, Self-Care Condition: Good Prescriptions Prescriptions: New sulfamethoxazole-trimethoprim [Bactrim DS] 800-160 mg tablet 2 tab PO BID 5 Days Qty: 20 0RF No Action mupirocin [Centany] 2 % ointment 1 applic topical TID 7 Days Qty: 22 0RF Referrals Follow up/Referrals: Laury Martino APRN [Primary Care Provider, Medical] - See instructions Activity Restrictions/Add. Instructions Additional Instructions/Restrictions: Take the antibiotics as prescribed for 5 days.Return to the emergency department for any progression of the redness, severe drainage or if you have any other acute concerns otherwise follow-up with your primary care provider. Clinical Impressions Clinical Impression: Cellulitis Instructions Patient Instructions: DI for Skin Abscess Print Language Print Language: Georgian Discharge ED Provider: Sue Murphy Adult HPI General Chief complaint: Skin/Abscess/Foreign Body Stated complaint: abdominal pain Time Seen by Provider: 05/29/25 19:48 Mode of Arrival: Ambulatory Source of Information: Patient Description of Symptoms (Recalled from ER Triage Doc. by RN): patient presents to the ED for an infected spot on the mid lower abdomen. Tamiko stated he went to his primary care yesterday and they froze it . but it looks worse today according to the patient and he wanted it evaluated. History of Present Illness HPI narrative: Patient is an otherwise healthy 35-year-old male who presented to the emergency department with an area of redness and pus on his abdomen. Patient states that he had an area on his abdomen and was seen by his primary care provider and they froze it and then it started to develop redness and pus. Patient states that the area had been there for several days before his primary care provider froze it. Patient denies any fevers. Patient denies any other associated symptoms. Related Data Previous Rx's ?Medication ?Instructions ?Recorded mupirocin 2 % topical ointment 1 applic topical TID 7 days #22 05/28/25 (Centany) grams sulfamethoxazole 800 2 tab PO BID 5 days #20 tabs 05/29/25 mg-trimethoprim 160 mg tablet (Bactrim DS) Allergies Allergy/AdvReac Type Severity Reaction Status Date / Time No Known Allergies Allergy Verified 05/28/25 08:57 [facility] Disclaimer: The information contained in this section may have been updated after the patient was seen, as this information can be updated by other users. Medical History Migraine Kidney stone Surgical History History of laparoscopic appendectomy Social History Smoking Status: Never smoker alcohol intake: never substance use type: denies use current occupational status: other Travel in the last 8 weeks?: None Have you lived/traveled outside US in past 30 days?: No Contact w/someone who lives/traveled outside US past 30 days?: No Exposure to someone with infectious disease in past 14 days?: No Do you have a fever (greater than 100.4 F or 38 C)?: No Have you tested positive for COVID-19?: No Exposed to someone with COVID-19 in past 14 days?: No Do you have a sore throat?: No Do you have a cough?: No Do you have any weakness?: No Do you have any diarrhea?: No Are you experiencing any unusual bleeding?: No Do you have any muscle aches/pain?: No Do you have any abdominal pain?: No Are you experiencing loss of taste or smell?: No Other Medical History Have you received the Flu Vaccine for this season: Yes Have you received the Pneumonia Vaccine: Yes ROS Obtained: Yes All systems reviewed & no additional complaints except as documented and Yes Systems reviewed as appropriate & no additional complaints except as documented Physical Exam General General appearance: alert and in no apparent distress Head Head exam: atraumatic, normocephalic and normal inspection Eye Eye exam: Present normal appearance, PERRL and EOMI; Absent scleral icterus ENT ENT exam: Present normal exam and normal external ear exam Neck Neck exam: Present normal inspection and full ROM Chest Chest inspection: Present normal inspection and symmetric chest wall rise Respiratory Respiratory exam: Present normal lung sounds bilaterally; Absent respiratory distress or wheezes Cardiovascular Cardiovascular exam: Present regular rate, normal rhythm and normal heart sounds Abdominal Exam Abdominal exam: Present soft and distention; Absent tenderness, guarding or rebound Extremities Exam Extremities exam: Present normal inspection and full ROM Back Exam Back exam: Present normal inspection and full ROM Neurological Exam Neurological exam: Present alert and oriented X3 Psychiatric Psychiatric exam: Present normal affect and normal mood Skin Skin exam: Present warm, dry and other (small 1x1 area on lower abdomen with surrounding erythema and pus) Medical Decision Making Medical Records Medical records reviewed: Yes I reviewed the patient's medical records. Screening: Per USPSTF and CDC recommendations, given the prevalence of disease in our [facility], it is our hospital?s policy to screen for HIV and viral Hepatitis for all patients aged 18 and over and those with ongoing risk factors. Tae Inquiry Pt receiving controlled substance: No Vital Signs: 05/29/25 19:40 05/29/25 20:15 Temperature 98.2 F 97.9 F Temperature Source Oral Oral Pulse Rate 77 Pulse Rate [Right Radial] 77 Respiratory Rate 16 18 Blood Pressure 153/70 H Blood Pressure [Right Arm] 153/70 H Blood Pressure Mean [Right Arm] 97 Blood Pressure Source [Right Arm] Automatic Cuff Blood Pressure Position [Right Arm] Sitting 02 Sat by Pulse Oximetry 97 Oxygen Delivery Method Room Air Room Air Lab Data Lab results reviewed: Yes I reviewed the patient's lab results. Orders (Tests/Meds): ED MEDICATIONS Discontinued Medications Generic Name Dose Route Start Last Admin Trade Name Freq PRN Reason Stop Dose Admin Trimethoprim/Sulfamethoxazole 1 each 05/29/25 19:56 05/29/25 20:02 Sulfa/Trimethoprim 1 Tablet PO 05/29/25 19:57 1 each ONCE ONE Administration ORDERS Category Date Time Status Wound Culture and Gram Stain Stat Micro 05/29/25 20:03 Results Medical Decision Narrative: Is an otherwise healthy 35-year-old male who presented to the emergency department with an area of redness on his abdomen. On arrival, patient was hemodynamically stable with unremarkable vital signs. Differential includes but not limited to: Wound, impetigo, cellulitis, abscess, amongst others. Patient had a 1 x 1 cm area with pus with some surrounding erythema. A wound culture was obtained. Patient was given a prescription for Bactrim and given a single dose here in the emergency department. At this time, I felt the patient was appropriate and stable for discharge home with antibiotics for cellulitis. No concern for abscess or other acute pathology at this time. Return precautions were discussed and patient was discharged home in stable condition. Critical Care Critical Care Time Critical Care Time: No
[2025-05-29] MEDS: SULFA/TRIMETHOPRIM 1 TABLET 1 EACH PO (20:02)
--- OUTSIDE RECORDS SUMMARY | 2025-05-29 20:10 | XMS_ITS | Clinical Summary ---
Author Organization [place] [facility] Address [address] [place] [address] Phone Care Team Providers Care Business Intelligence Reporting Analyst Name Role Phone Unavailable Primary Care Provider [...] series) 2011 COVID-19 Vaccine (2023-2 5 season) 2025 Influenza Vaccine (#1) 2025 Meningococcal B Vaccine Aged Out No l onger eligible based on patient's age to complete this topic Pneumococcal Vaccine 0-49 Aged Out No longer eligible based on patient's age to complete this topic Insurance MEDICAID [place]
[2025-05-29 20:15] VITALS: BP 153/70; PULSE 77; RESP 18; TEMP 36.6; O2SAT 97
--- NOTE | 2025-06-01 09:46 | PC.NURSE ---
Prelim wound culture discussed with . No change needed to treatment.
--- NOTE | 2025-06-02 12:38 | PC.NURSE ---
Final wound culture/gram stain discussed with . No change needed to treatment plan.
== END 2025-05-29 20:14 | disposition home or self-care (01) ==
LOC: ER 20:08
PROVIDERS: Emergency Provider Student in an Organized Health Care Education/Training Program; PCP Nurse Practitioner Family
DX: L03.311 Cellulitis of abdominal wall (principal)
CPT/HCPCS: 87070; 87077; 87186; 87205; 99283

== ENCOUNTER 2025-06-05 07:54 | Outpatient (CLI) | payer OTHER, SELFPAY ==
--- OUTSIDE RECORDS SUMMARY | 2025-06-05 07:58 | XMS_ITS | Clinical Summary ---
Author Organization [place] [facility] Address [address] [place] [address] Phone Care Team Providers Care Tearer Name Role Phone Unavailable Primary Care Provider [...] age to complete this topic Insurance MEDICAID [place]
[2025-06-05 08:24] LABS: Hematocrit 37.8 % (42.0-52.0); Hemoglobin 12.9 g/dL (14.1-18.0); Immature Granulocytes % 0.3 %; Mean Corpuscular HGB Conc 34.1 g/dL (31.8-35.4); Mean Corpuscular Hemoglobin 28.6 pg (27.0-31.2); Mean Corpuscular Volume 83.8 fl (80-94); Nucleated Red Blood Cells % 0 %; Platelet Count 214 K/mm3 (142-424); Red Blood Count 4.51 M/mm3 (4.60-6.20); Red Cell Distribution Width-SD 38.1 fL; White Blood Count 3.4 K/mm3 (4.8-10.8)
== END 2025-06-05 23:59 | disposition home or self-care (01) ==
PROVIDERS: PCP Nurse Practitioner Family; Visit Provider Nurse Practitioner Family
DX: D72.819 Decreased white blood cell count, unspecified (principal)
CPT/HCPCS: 36415; 85025

== ENCOUNTER 2025-06-09 15:57 | Emergency (ER) | payer OTHER, SELFPAY ==
[2025-06-09 16:18] VITALS: BP 122/66; PULSE 73; RESP 18; TEMP 36.6; O2SAT 99; BMI 29.5
--- NOTE | 2025-06-09 16:34 | XR_ITS ---
PROCEDURE INFORMATION: Exam: XR Left Foot Exam date and time: 06/09/2025 4:37 PM Age: 35 years old Clinical indication: Injury or trauma; Other: Puncture wound; Left; Foreign body involvement not specified; Injury details: Heel, plantar surface; Additional info: R/O foreign object near heel TECHNIQUE: Imaging protocol: Radiologic exam of the left foot. Views: 1 or 2 views. COMPARISON: No relevant prior studies available. FINDINGS: Bones/joints: Normal. Soft tissues: Normal. IMPRESSION: No acute findings. No radiopaque foreign body
--- NOTE | 2025-06-09 16:36 | HMH.EDGENADL ---
Discharge Plan Disposition Patient Disposition: Home, Self-Care Prescriptions Prescriptions: No Action mupirocin [Centany] 2 % ointment 1 applic topical TID 7 Days Qty: 22 0RF sulfamethoxazole-trimethoprim [Bactrim DS] 800-160 mg tablet 2 tab PO BID 5 Days Qty: 20 0RF Referrals Follow up/Referrals: Laury Martino APRN [Primary Care Provider, Medical] - See instructions Clinical Impressions Clinical Impression: Puncture wound of left heel Instructions Patient Instructions: DI for Puncture Wound Print Language Print Language: [place] Discharge ED Provider: Sue Murphy General Adult HPI General Chief complaint: Skin/Abscess/Foreign Body Stated complaint: Needing Tetnas Shot; Piece of metal in L foot Time Seen by Provider: 06/09/25 16:11 Mode of Arrival: Ambulatory Source of Information: Patient Description of Symptoms (Recalled from ER Triage Doc. by RN): Reports stepping on a piece of metal. Left heel. Requesting a tdap. History of Present Illness HPI narrative: Ronnie Hull is a 35-year-old male who stepped on a sharp piece of metal that went through his shoe into his left heel. Does have a puncture severiano with bleeding noted. Patient states that he felt like there was something still in his heel so he decided to be evaluated in the ER. Is not up-to-date on his tetanus shot. No other complaints at this time. Related Data Previous Rx's ?Medication ?Instructions ?Recorded mupirocin 2 % topical ointment 1 applic topical TID 7 days #22 05/28/25 (Centany) grams sulfamethoxazole 800 2 tab PO BID 5 days #20 tabs 05/29/25 mg-trimethoprim 160 mg tablet (Bactrim DS) Allergies Allergy/AdvReac Type Severity Reaction Status Date / Time No Known Allergies Allergy Verified 05/28/25 08:57 [facility] Disclaimer: The information contained in this section may have been updated after the patient was seen, as this information can be updated by other users. Medical History Migraine Kidney stone Surgical History History of laparoscopic appendectomy Family History (Updated 06/09/25 @ 16:34 by Afia Colin RN) Other No significant family history Social History Smoking Status: Never smoker alcohol intake: never substance use type: denies use current occupational status: other Travel in the last 8 weeks?: None Have you lived/traveled outside [place] in past 30 days?: No Contact w/someone who lives/traveled outside US past 30 days?: No Exposure to someone with infectious disease in past 14 days?: No Do you have a fever (greater than 100.4 F or 38 C)?: No Have you tested positive for COVID-19?: No Exposed to someone with COVID-19 in past 14 days?: No Do you have a sore throat?: No Do you have a cough?: No Do you have any weakness?: No Do you have any diarrhea?: No Are you experiencing any unusual bleeding?: No Do you have any muscle aches/pain?: No Do you have any abdominal pain?: No Are you experiencing loss of taste or smell?: No Other Medical History Have you received the Flu Vaccine for this season: Yes Have you received the Pneumonia Vaccine: Yes ROS Obtained: Yes All systems reviewed & no additional complaints except as documented Physical Exam General General appearance: alert and in no apparent distress Head Head exam: atraumatic, normocephalic and normal inspection Eye Eye exam: Present normal appearance, PERRL and EOMI ENT ENT exam: Present normal exam, normal oropharynx, mucous membranes moist, TM's normal bilaterally and normal external ear exam Neck Neck exam: Present normal inspection, full ROM and trachea midline; Absent meningismus or lymphadenopathy Chest Chest inspection: Present normal inspection and symmetric chest wall rise; Absent tenderness Respiratory Respiratory exam: Present normal lung sounds bilaterally; Absent respiratory distress Cardiovascular Cardiovascular exam: Present regular rate and normal rhythm; Absent JVD Abdominal Exam Abdominal exam: Present soft and normal bowel sounds; Absent distention, tenderness or guarding Extremities Exam Extremities exam: Present normal inspection, full ROM, normal capillary refill and other (Puncture wound to left heel, plantar aspect, minimal amount of blood, no apparent foreign body still present); Absent calf tenderness Back Exam Back exam: Present normal inspection; Absent tenderness Neurological Exam Neurological exam: Present alert and oriented X3 Psychiatric Psychiatric exam: Present normal affect and normal mood Skin Skin exam: Present warm, dry, intact and normal color Lymphatic Lymphatic Findings: no adenopathy Medical Decision Making Medical Records Screening: Per USPSTF and CDC recommendations, given the prevalence of disease in our region, it is our hospital?s policy to screen for HIV and viral Hepatitis for all patients aged 18 and over and those with ongoing risk factors. Tae Inquiry Pt receiving controlled substance: No Vital Signs: 06/09/25 16:18 Temperature 97.9 F Temperature Source Oral Pulse Rate [Radial] 73 Respiratory Rate 18 Blood Pressure [Right Arm] 122/66 Blood Pressure Mean [Right Arm] 84 Blood Pressure Source [Right Arm] Automatic Cuff Blood Pressure Position [Right Arm] Sitting 02 Sat by Pulse Oximetry 99 Oxygen Delivery Method Room Air Orders (Tests/Meds): ED MEDICATIONS Discontinued Medications Generic Name Dose Route Start Last Admin Trade Name Freq PRN Reason Stop Dose Admin Tetanus/Reduced Diphtheria/Acell Pertussis 0.5 ml 06/09/25 16:34 06/09/25 16:55 Tet/Diphth/Pert-Adult 0.5ml Syringe IM 06/09/25 16:35 0.5 ml .ONCE ONE Administration ORDERS Category Date Time Status Foot XR left 2 views [XR foot LT 2V] Stat Exams 06/09/25 16:34 Taken HIV Combo Stat Lab 06/09/25 16:22 Ordered Hepatitis C Ab Qual. W/ RFX Stat Lab 06/09/25 16:22 Ordered Medical Decision Narrative: In summary patient is an 35-year-old male who presents emergency department for evaluation of possible foreign body in left foot. Patient stepped on a sharp object that went through his shoe into his left heel. Was some minimal bleeding at the site. No obvious foreign object still stuck in there.. Patient is hemodynamically stable upon arrival, afebrile. Unremarkable nonfocal physical exam except for the puncture on the plantar aspect of the left heel, minimal erythema, minimal bleeding. Differential diagnosis includes foot ulcer, retained foreign body. Initial workup will be conducted with x-ray of the left foot to ensure there is no retained foreign object. Initial interventions include Tdap shot. Initial workup reviewed by me informal read of x-ray of the left with a not show any retained foreign body. Patient was given a Tdap. Given this patient appropriate for discharge at this time. You can go home and wash area with soap and water. Walk on it as normal. If you have any fever, erythema, worsening redness or pain in your foot, please return to the emergency room or to your primary care physician for evaluation. Patient verbalized understanding. Critical Care Critical Care Time Critical Care Time: No
[2025-06-09] MEDS: TET/DIPHTH/PERT-ADULT 0.5ML SYRINGE 0.5 ML IM (16:55)
[2025-06-09 17:21] VITALS: BP 122/66; PULSE 79; RESP 16; TEMP 36.6; O2SAT 99
== END 2025-06-09 17:27 | disposition home or self-care (01) ==
PROVIDERS: Emergency Provider Student in an Organized Health Care Education/Training Program; PCP Nurse Practitioner Family
DX: S91.332A Puncture wound without foreign body, left foot, initial encounter (principal); W45.8XXA Other foreign body or object entering through skin, initial encounter
CPT/HCPCS: 73620; 90471; 90715; 99283; 99284

== ENCOUNTER 2025-08-20 22:54 | Emergency (ER) | payer OTHER, SELFPAY ==
[2025-08-20 23:00] VITALS: BP 134/74; PULSE 95; RESP 18; TEMP 37.2; O2SAT 100; BMI 30.7
--- OUTSIDE RECORDS SUMMARY | 2025-08-20 23:14 | XMS_ITS | Clinical Summary ---
Author Organization [facility] Address [address] [place] [address] Phone Care Team Providers Care Dependency Director Name Role Phone Unavailable Primary Care Provider [...] on file Sexual Orientation Not on file Plan of Treatment Health Maintenance Due Date Last Done Comments Annual Wellness Exam 1995 DTaP/TDaP/Td (1 - Tdap) 2011 Hepatitis B Vaccine (1 of 3 - 19+ 3-dose series) 2011 COVID-19 Vaccine (2024-2 6 season) 2025 Influenza Vaccine (#1) 2025 Meningococcal B Vaccine Aged Out No l onger eligible based on patient's age to complete this topic Pneumococcal Vaccine 0-49 Aged Out No longer eligible based on patient's age to complete this topic Insurance MEDICAID [place]
[2025-08-20 23:30] VITALS: BP 106/79; PULSE 90; O2SAT 97
--- NOTE | 2025-08-20 23:34 | HMH.EDGENADL ---
Discharge Plan Disposition Patient Disposition: Home, Self-Care Prescriptions Prescriptions: No Action mupirocin [Centany] 2 % ointment 1 applic topical TID 7 Days Qty: 22 0RF ferrous sulfate 325 mg (65 mg iron) tablet 325 mg PO DAILY Qty: 30 2RF sulfamethoxazole-trimethoprim [Bactrim DS] 800-160 mg tablet 2 tab PO BID 5 Days Qty: 20 0RF Referrals Follow up/Referrals: Laury Martino APRN [Primary Care Provider, Medical] - See instructions Activity Restrictions/Add. Instructions Additional Instructions/Restrictions: Please keep area clean dry and covered. Please follow-up with your primary care provider. Please return to the emergency department if you develop any new or worsening symptoms or become concerned for your health. Clinical Impressions Clinical Impression: Cyst of neck Instructions Patient Instructions: DI for Laceration Repair Print Language Print Language: Croatian Discharge ED Provider: Percy Edwards General Adult HPI General Chief complaint: Wound/Laceration Stated complaint: bump on right neck Time Seen by Provider: 08/20/25 23:09 Mode of Arrival: Ambulatory Source of Information: Patient Description of Symptoms (Recalled from ER Triage Doc. by RN): Pt states he has had what he thought was a cyst on the right side of his neck for going on a year now. Pt states over the last three days the pain and size of the cyst has gotten worse. Pt states when he itches the spot there is a foul odor History of Present Illness HPI narrative: 35-year-old male without significant past medical history presents for what he believes is a cyst on his neck. It is in his duke line. It has been ongoing for a few months at least, but it has gotten more red and painful over the last few days. There is sometimes a foul odor that emanates from it. He denies fever. Denies any other lumps anywhere. Related Data Previous Rx's ?Medication ?Instructions ?Recorded mupirocin 2 % topical ointment 1 applic topical TID 7 days #22 05/28/25 (Centany) grams sulfamethoxazole 800 2 tab PO BID 5 days #20 tabs 05/29/25 mg-trimethoprim 160 mg tablet (Bactrim DS) ferrous sulfate 325 mg (65 mg 325 mg PO DAILY #30 tabs 06/11/25 iron) tablet Allergies Allergy/AdvReac Type Severity Reaction Status Date / Time No Known Allergies Allergy Verified 05/28/25 08:57 [facility] Disclaimer: The information contained in this section may have been updated after the patient was seen, as this information can be updated by other users. Medical History Migraine Kidney stone Surgical History History of laparoscopic appendectomy Family History (Updated 06/09/25 @ 16:34 by Afia Colin RN) Other No significant family history Social History Smoking Status: Former smoker alcohol intake: never substance use type: denies use current occupational status: other Travel in the last 8 weeks?: None Other Medical History Have you received the Flu Vaccine for this season: Yes Have you received the Pneumonia Vaccine: Yes ROS Obtained: Yes All systems reviewed & no additional complaints except as documented Physical Exam General General appearance: alert and in no apparent distress Head Head exam: atraumatic and normocephalic Eye Eye exam: Present normal appearance, PERRL and EOMI ENT ENT exam: Present normal oropharynx and normal external ear exam Neck Neck exam: Present normal inspection, full ROM and other (Small subcutaneous swelling at the margin of the duke line in the right anterior lateral neck. No associated lymphadenopathy noted.) Chest Chest inspection: Present normal inspection and symmetric chest wall rise; Absent tenderness Respiratory Respiratory exam: Present normal lung sounds bilaterally; Absent respiratory distress Cardiovascular Cardiovascular exam: Present regular rate and normal rhythm Abdominal Exam Abdominal exam: Present soft; Absent distention, tenderness or guarding Extremities Exam Extremities exam: Present normal inspection; Absent edema or joint swelling Back Exam Back exam: Present normal inspection; Absent tenderness Neurological Exam Neurological exam: Present alert and oriented X3; Absent motor sensory deficit Psychiatric Psychiatric exam: Present normal affect and normal mood Skin Skin exam: Present warm, dry and normal color Lymphatic Lymphatic Findings: no adenopathy Medical Decision Making Medical Records Medical records reviewed: Yes I reviewed the patient's medical records. Screening: Per USPSTF and CDC recommendations, given the prevalence of disease in our region, it is our hospital?s policy to screen for HIV and viral Hepatitis for all patients aged 18 and over and those with ongoing risk factors. Tae Inquiry Pt receiving controlled substance: No Tae was queried for this patient: No Vital Signs: 08/20/25 23:00 08/20/25 23:30 08/21/25 00:03 Temperature 98.9 F 98.8 F Temperature Source Oral Pulse Rate 90 74 Pulse Rate [Right] 95 H Respiratory Rate 18 18 Blood Pressure 106/79 L 125/78 Blood Pressure [Right Arm] 134/74 Blood Pressure Mean [Right Arm] 94 Blood Pressure Source [Right Arm] Automatic Cuff Blood Pressure Position [Right Arm] Sitting 02 Sat by Pulse Oximetry 100 97 Oxygen Delivery Method Room Air Room Air Lab Data Lab results reviewed: Yes I reviewed the patient's lab results. Orders (Tests/Meds): ED MEDICATIONS Discontinued Medications Generic Name Dose Route Start Last Admin Trade Name Tone PRN Reason Stop Dose Admin Lidocaine/Epinephrine 5 ml 08/20/25 23:32 08/20/25 23:44 Lidocaine 1% W/Epi 1:100,000 20ml Vial IJ 08/20/25 23:33 5 ml ONCE ONE Administration ORDERS Category Date Time Status POCUS Point of Care (ER Only) Stat Exams 08/20/25 23:32 Completed Medical Decision Narrative: 35-year-old male without significant past medical history presents for a lump on the neck. History was obtained via interactive discussion with patient. On arrival, patient is [afebrile, hemodynamically stable, satting appropriately, alert, oriented x4, GCS 15], moving all extremities spontaneously. Full physical exam performed and significant for findings as documented above Differential includes but is not limited to cyst, abscess, cellulitis, lymphadenopathy. Bedside ultrasound was performed and shows no evidence of internal vascularity. Appears consistent with a cyst. Given it is worsening and pain and erythema, it may be becoming infected and requires drainage. Patient was agreeable to plan. Bedside incision and drainage was performed. Patient was discharged in stable condition. Return precautions given Procedures Risk/Benefits of Procedure(s) Were Explained: Yes Abscess I/D Site: neck Side (if applicable): right Local Anesthetic: lidocaine 1% and with epi Amount of anesthesia used (mL): 4 Technique: incised with #11 blade Amount of fluid expressed (mL): 5 Irrigation: Yes Packing used?: none Limited Ultrasound Indication:: Limited soft tissue ultrasound Indication: Neck swelling Identified structures: Location: Right anterior lateral neck Findings: Circular walled structure with internal hyperdense fluid, no internal vascularity Impression: Cyst/abscess in the neck Images were saved to permanent archive The study was technically adequate Soft Tissue CPT Codes: CPT Neck: 20241-89 This study was performed by me, and I personally interpreted all images/videos. Critical Care Critical Care Time Critical Care Time: No
[2025-08-20] MEDS: LIDOCAINE 1% W/EPI 1:100,000 20ML VIAL 5 ML IJ (23:44)
[2025-08-21 00:03] VITALS: BP 125/78; PULSE 74; RESP 18; TEMP 37.1; O2SAT 98
== END 2025-08-21 00:06 | disposition home or self-care (01) ==
PROVIDERS: Emergency Provider Emergency Medicine; PCP Nurse Practitioner Family
DX: L02.11 Cutaneous abscess of neck (principal)
CPT/HCPCS: 10060; 99283; J2004